=== PATIENT | female | born 1950 | race Caucasian/White ===

== ENCOUNTER → 2020-07-26 15:26 | Outpatient (CLI) | payer MEDICARE, OTHER, SELFPAY ==
[2020-07-26 16:33] LABS: COVID19 -Nasal RAPID Negative (Negative)
== END ==
PROVIDERS: PCP Internal Medicine; Visit Provider Nurse Practitioner
DX: Z11.59 Encounter for screening for other viral diseases (principal)
CPT/HCPCS: 87635

== ENCOUNTER 2020-07-28 10:22 | Day surgery (SDC) | payer MEDICARE, OTHER, SELFPAY ==
[2020-07-21 09:53] VITALS: BMI 39.8
[2020-07-28] VITALS (19 sets, daily range): BP systolic 90–145; BP diastolic 56–82; PULSE 54–106; RESP 9–18; TEMP 36.2–37.1; O2SAT 92–100; BMI 38.6
--- NOTE | 2020-07-28 | DI.RAD.S_ITS ---
PROCEDURE: XR LUMBAR SPINE 2-3V INDICATIONS: L5-S1 TLIF TECHNIQUE: 2 views of the lumbar spine were acquired. COMPARISON: [facility] Outside Film, CR, XR LUMBAR SPINE 2 OR 3 VIEWS, 03/22/2020, 8:49. FINDINGS: Bones: Postsurgical changes compatible with L5-S1 TLIF. Soft tissues: Overlying bowel gas pattern is normal. No suspicious soft tissue calcifications. IMPRESSION: Expected postsurgical change for L5-S1 TLIF. Dictated by: Bonnie Wyatt MD, PhD on 07/28/2020 at 15:44 Approved by: Bonnie Wyatt MD, PhD on 07/28/2020 at 15:45
[2020-07-28] MEDS: LACTATED RINGERS 1,000 ML 42 ML IV ×2 (10:54→14:27)
--- NOTE | 2020-07-28 12:16 | PM.PREOP ---
Pre-operative Note COVID-19 COVID-19 status: Negative Result date/Date tested (Pos, Neg/Pending): 07/26/20 Interval Note History & Physical reviewed/Exam performed by Physician: Yes Changes to H&P: No
[2020-07-28] MEDS: CEFAZOLIN 2 GM/100 ML FROZ.PIGGY IV ×2 (12:36→20:53)
--- NOTE | 2020-07-28 13:17 | SUR.OPER ---
Prone on spine table, head in foam head support, padded chest and pelvic supports, gel pad at knees, lower legs supported by pillows; nipples, genitalia and toes free of pressure, arms secured on foam padded arm boards at <90 degrees abduction. Tape over blanket at thigh secured to table.
[2020-07-28] MEDS: BUPIVACAINE LIPOSOME 266 MG/20 ML VIAL INJ (13:25)
[2020-07-28] MEDS: BUPIVACAINE 0.5% W/ EPI (PF) 30 ML VIAL INJ (13:26)
--- NOTE | 2020-07-28 15:30 | PM.OP.1 ---
Operative Date/Time/Diagnoses Date of procedure: 07/28/20 Time of procedure: 13:30 Pre-op diagnosis: 1. L5-S1 spondylolisthesis 2. L5-S1 spinal stenosis with radiculopathy Post-op diagnosis: same Procedure & Clinicians Procedure: 1. L5-S1 Postero-lateral and posterior interbody fusion 2. L5-S1 interbody cage placement. 3. L5-S1 decompressive laminectomy with bilateral facetecomies 4. L5-S1 Posterior non-segmental instrumentation 5. [place] of bone marrow from iliac crest 6. Utilization of microsurgical technique and operating microscope Same procedure as scheduled: Yes Indications: Patient has been having chronic back pain and worsening lumbar radiculopathy. Patient failed multiple conservative management with worsening pain weakness and numbness in her lower extremity. Patient has been having difficulty performing activity of daily living. After discussing risks benefits of treatment options, patient elected proceed with surgery. Surgeon: Jamari Mcclain Registered Physical Therapist: Pratibha Haider'Brien Click Yes if Unassisted: No Anesthesia Type: General Operative Notes Closure Type: primary Specimen(s): none sent Prosthetic devices, grafts, tissues, transplants, or devices: Globus revolve screws, Rise cage Estimated Blood Loss (mL): 100 Blood products transfused: none Procedure in detail: Patient was seen in the preoperative area. Risks and benefits of the surgery was discussed with the patient. Informed consent was obtained from the patient and placed in the chart. Surgical site was marked. Patient was taken to the operative room. General anesthesia was administered. Prophylactic antibiotic was given to the patient less than 30 min before the incision was made. Patient was placed into a prone position on the Nir table. Patient's back was then prepped and draped in the sterile fashion. Time-out was performed at this time. Using AP and lateral C-arm imaging the interval between L5-S1 was identified and marked on patient's back. A 2 inch incision 2 in from midline was made on the right side first. The fascia was incised in line with skin incision. Globus MARS retractors was placed inside the incision and docked onto the L5 lamina. Using microsurgical technique and operating microscope, a L5 laminectomy and L5-S1 facetectomy was performed using a Kerrison rongeur. Patient was found have severe neural foramen stenosis and moderate central stenosis which required a total facetectomy and bilateral laminectomy at L5-S1 level. After the laminectomy and facetectomy the epidural space and neural foramen was fully decompressed which rendered L5-S1 grossly unstable require fusion procedure. The disc space at L5-S1 was identified. And a total diskectomy was performed at L5-S1 level. The endplates were decorticated using a rasp and shaver. The total diskectomy and decortication was performed at L5-S1 level in order to to accomplish a L5-S1 fusion. The local bone from the laminectomy and facetectomy was saved for local bone grafting. After the total diskectomy and decortication was completed, Trifecta bone graft material was combined with local bone that was harvested earlier. At this time, a separate skin is incision was made over the iliac crest. A Jamshidi needle was inserted into the iliac crest through a separate skin incision. 5 cc of bone marrow aspiration was obtained through the separate skin incision using a Jamshidi needle from the iliac crest. The bone marrow aspiration was combined with local bone and the Trifecta bone grafting material. The bone grafting material was placed into the L5-S1 interbody space along with a expandable cage. The cage was expanded to its maximum height using the torque limiting screwdriver. At this time a mirror image incision was made on the left side. The fascia was incised in line with the skin incision. Globus MARS retractor was inserted and docked onto the L5-S1 posterolateral gutter. Using the power drill, posterior-lateral decortication was performed at L5-S1 level until bleeding cortical bone was identified. The remaining bone grafting material was placed into the L5-S1 posterior lateral gutter he order to accomplish posterolateral fusion at the L5-S1 level. Using the double C-arm technique, pedicle screws were placed into the L5-S1 pedicles bilaterally. This was done by placing the Jamshidi needle into the pedicles, then placing the guidewires over the Jamshidi needle, and finally placing the cannulated screws over the guidewires bilaterally. After the pedicle screws were placed, 2 titanium rods was locked into the heads of the pedicle screws using locking caps and torque limiting screwdriver. After all the hardware was placed, and confirmed with AP and lateral C-arm imaging, the wound was then irrigated with sterile normal saline and packed with Ray-Mike gauze for 3 min to accomplish hemostasis. After the gauze was removed the deep fascia was closed with #1 Vicryl suture. The subcutaneous layer was closed with 2-0 Vicryl. The skin was closed with skin ben. Patient tolerated the procedure well. There were no complications. Complications: none Post-operative Condition: stable Disposition: PACU Plan for aftercare: Admit to inpatient hospital
[2020-07-28] MEDS: fentaNYL 100 MCG/2 ML INJ IV ×2 (15:52→16:01)
[2020-07-28] MEDS: HYDROMORPHONE 2 MG INJ IV ×4 (15:54→16:18)
[2020-07-28] MEDS: hydrOXYzine 50 MG/ML INJ 25 MG IM (16:08)
--- NOTE | 2020-07-28 16:32 | SUR.PHASEI ---
Pt arrived with airway, needing chin support for patent airway, 02 nasal cannula added, o2 now weaned off.
--- NOTE | 2020-07-28 16:35 | SUR.PHASEI ---
Pt medicated with dilaudid vistaril and fentanyl. Pt states she is much more comfortable now. Report called.
--- NOTE | 2020-07-28 16:47 | SUR.PHASEI ---
Pt transported upm to room on room air.
[2020-07-28] MEDS: SODIUM CHLORIDE 0.9% 1,000 ML 100 ML IV (17:11)
--- NOTE | 2020-07-28 17:58 | PC.ADMIT ---
[address] Admission Note: The patient,Mariajose Cintron,69 y/o, was given written information regarding hospital policies, unit procedures and contact persons. Patient's smoking status: Never smoker. Vital Signs - 8 hr 07/28/20 10:57 07/28/20 15:30 07/28/20 15:35 Temperature 98.8 F 97.4 F L Pulse Rate 73 87 86 Respiratory Rate 16 10 L 9 L Blood Pressure 132/77 141/81 H 135/75 Pulse Oximetry 100 92 93 07/28/20 15:41 07/28/20 15:46 07/28/20 15:51 Temperature Pulse Rate 82 80 54 L Respiratory Rate 16 18 16 Blood Pressure 130/77 121/73 90/68 Pulse Oximetry 97 98 99 07/28/20 15:55 07/28/20 16:02 07/28/20 16:07 Temperature Pulse Rate 75 73 66 Respiratory Rate 11 L 14 18 Blood Pressure 134/82 121/77 122/61 Pulse Oximetry 100 100 100 07/28/20 16:14 07/28/20 16:24 07/28/20 16:35 Temperature Pulse Rate 71 76 75 Respiratory Rate 16 11 L 13 Blood Pressure 135/66 125/67 112/71 Pulse Oximetry 100 100 100 07/28/20 16:45 07/28/20 16:46 07/28/20 17:15 Temperature 97.5 F L 97.1 F L 97.3 F L Pulse Rate 74 73 77 Respiratory Rate 15 16 15 Blood Pressure 103/56 L 133/73 115/61 Pulse Oximetry 100 100 99 07/28/20 17:45 Temperature 97.7 F Pulse Rate 69 Respiratory Rate 16 Blood Pressure 145/77 H Pulse Oximetry 100 Patient arrived on floor at 1645 already in inpatient bed. Axox3, can make needs known. Recent hx of fall. C/o pain /10, managed on current regimen. Given fall risk and call light instructions, acknowledged teaching. High fall risk, call light in reach.
[2020-07-28] MEDS: hydrOXYzine pamoate 25 MG CAPSULE PO (19:47)
[2020-07-28] MEDS: OXYCODONE IR 5 MG TABLET 10 MG PO ×2 (19:47→22:48)
[2020-07-28] MEDS: SENNOSIDES 8.6 MG TABLET 17.2 MG PO (20:52)
[2020-07-28] MEDS: DOCUSATE 100 MG CAPSULE PO (20:52)
[2020-07-29] MEDS: OXYCODONE IR 5 MG TABLET 10 MG PO ×3 (03:43→14:09)
[2020-07-29] MEDS: CEFAZOLIN 2 GM/100 ML FROZ.PIGGY IV (04:02)
[2020-07-29 05:56] VITALS: BP 122/61; PULSE 79; RESP 16; TEMP 36.4; O2SAT 94
[2020-07-29 07:00] VITALS: BP 127/72; PULSE 86; RESP 16; TEMP 36.7; O2SAT 96
[2020-07-29] MEDS: ACETAMINOPHEN 325 MG TABLET 650 MG PO ×2 (08:47→12:36)
[2020-07-29] MEDS: DOCUSATE 100 MG CAPSULE PO (08:47)
[2020-07-29] MEDS: SODIUM CHLORIDE 0.9% FLUSH 10 ML IV (08:48)
--- NOTE | 2020-07-29 09:09 | P.PN_ITS ---
Subjective Subjective Date Patient Seen: 07/29/20 Time Patient Seen: 09:09 Interval history: Patient is POD#1 s/p L5-S1 TLIF with Dr. Mcclain. Pain has been controlled with Oxycodone. She has been out of bed to the bathroom. She is voiding appropriately and has tolerated a diet. No new numbness, tingling, or weakness. No chest pain or shortness of breath. Exam Vital Signs (past 8 hours): - 07/29/20 05:56 07/29/20 07:00 Temperature 97.6 F 98.1 F Pulse Rate 79 86 Respiratory Rate 16 16 Blood Pressure 122/61 127/72 Pulse Oximetry 94 96 Oxygen Delivery Method Room Air Oxygen Flow Rate 0 Narrative Exam Narrative: 69 year old female, moving about room and then resting in chair. Alert and oriented in no acute distress. Dressing in place is clean and dry peeling at edges. Patient walking about the room. 5/5 BLE. Calves are soft. Palpable pedal pulse. [facility] Medical History Arthritis Back pain Easy bruisability Neuropathy Seasonal allergies Spinal cord injury (03/2014) Surgical History History of section History of surgery Hx of dilation and curettage Hx of tonsillectomy Hx of tubal ligation Social History household members: children Smoking Status: Never smoker alcohol intake: former Assessment & Plan Assessment & Plan narrative: -Patient POD#1 s/p L5-S1 TLIF. Progressing well. -Will need to work with PT today. Limit bending, lifting, twisting. -Daughter is available as ecology professor at home. -Oxycodone working well for pain control, will provide prescription for this to discharge home with. -Potential discharge to home this afternoon, however she has not mobilized with PT as of yet and does have history of weakness/wheelchair use as well as obesity. Otherwise d/c to home tomorrow. Quality VTE Deep Vein Thrombosis/Pulmonary Embolism Present on Admission: No
[2020-07-29 11:00] VITALS: BP 112/78; PULSE 95; RESP 16; TEMP 36.3; O2SAT 100
--- NOTE | 2020-07-29 11:40 | PT.IIE ---
Current Diagnoses Spondylolisthesis, lumbosacral region (07/28/20) Spinal stenosis, lumbar region without neurogenic claudication (07/28/20) Postlaminectomy syndrome, not elsewhere classified (07/28/20) Surgery Performed Operation Date: 07/28/20 12:15 Actual Procedures p L5-S1 TLIF w. instrumentation(Not Applicable) - Jamari Mcclain MD Surgical History (Last Reviewed 07/29/20 @ 09:12 by Bettie Kemp PA-C) History of section History of surgery Hx of dilation and curettage Hx of tonsillectomy Hx of tubal ligation Medical History (Last Reviewed 07/29/20 @ 09:12 by Bettie Kemp PA-C) Arthritis Back pain Easy bruisability Neuropathy Seasonal allergies Spinal cord injury (03/2014) Physical Therapy Inpatient Evaluation/Re-Eval M1 PT/OT-IP Prior Functional Status Start: 07/29/20 08:42 Freq: NEEDED Status: Active Protocol: Document 07/29/20 11:37 DE (Rec: 07/29/20 12:13 DE [id number]) Medical Review Prior Functional Status Medical History Reviewed Yes Diet/Fluid Consistency Regular Communication WNL. No deficits noted. Able to make needs known. Mobility and Gait Modified IND with Veloped for outside and regular FWW for inside the house at baseline. Pt was able to amb ~2 miles. Activities of Daily Living and IADL's IND for all ADLs and IADLs at baseline. Social History Household Members children Living Arrangements House Number of Floors (Floors) Two Floors Number of Stairs To Enter/Railing? 0 JANNET through garage. 15 steps with narrow B railing but pt doesn't need to go upstairs. Home Environment Standard Height Toilet,Walk in Shower,Built-In Shower Seat Home Equipment Front Wheel Walker,Straight Cane,Crutches,Manual Wheelchair,Raised Toilet Seat Without Armrests,Marine Pipe Welder,Grab Bars In Shower Employment Status Retired Additional Social History Comment Daughter will be home with pt full-time for the next 3 months. Daughter is in [place]. M1 PT/OT-IP Prior Functional Status Start: 07/29/20 11:54 Freq: NEEDED Status: Active Protocol: Document 07/29/20 12:26 CCC (Rec: 07/29/20 13:00 [facility] [id number]) Medical Review Prior Functional Status Medical History Reviewed Yes Diet/Fluid Consistency Regular Communication WNL. No deficits noted. Able to make needs known. Mobility and Gait Modified IND with Veloped for outside and regular FWW for inside the house at baseline. Pt was able to amb ~2 miles. Activities of Daily Living and IADL's IND for all ADLs and IADLs at baseline. Social History Household Members children Living Arrangements House Number of Floors (Floors) Two Floors Number of Stairs To Enter/Railing? 0 JANNET through garage. 15 steps with narrow B railing but pt doesn't need to go upstairs. Home Environment Standard Height Toilet,Walk in Shower,Built-In Shower Seat Home Equipment Front Wheel Walker,Straight Cane,Crutches,Manual Wheelchair,Raised Toilet Seat Without Armrests,Marine Pipe Welder,Grab Bars In Shower Employment Status Retired Additional Social History Comment Daughter will be home with pt full-time for the next 3 weeks . Daughter is in [place]. M2 PT-IP Current Condition Start: 07/29/20 08:42 Freq: NEEDED Status: Active Protocol: Document 07/29/20 11:37 DE (Rec: 07/29/20 12:13 DE [id number]) Physical Therapy Current Condition Current Condition Evaluation Date 07/29/20 Treatment Diagnosis L5-S1 TLIF; Difficulty in walking Onset Date 07/28/20 Precautions Lumbar Precautions Log Roll,No Twisting,Limit Bending,Lifting Restriction of 10 lbs,Gait Belt above Incisional Area M3 PT-IP Subjective Start: 07/29/20 08:42 Freq: NEEDED Status: Active Protocol: Document 07/29/20 11:37 DE (Rec: 07/29/20 12:13 DE [id number]) Subjective Physical Therapy Visit Type Type Initial Evaluation Visit Start Time 09:30 Visit Stop Time 10:14 Total Visit Minutes 44 Notes DONELL Locke led session under direct supervision of PT Celine. Number of NAVIGATING OFFICER Visits 0 Physical Therapy Visit Comments Patient Comments Pt is agreeable to do PT. M4 PT-IP Mobility and Gait Start: 07/29/20 08:42 Freq: NEEDED Status: Active Protocol: Document 07/29/20 11:37 DE (Rec: 07/29/20 12:13 DE [id number]) PT-Bed Mobility Assessment Supine to Sit Supine to Sit Contact Guard Assistance Sit to Supine Sit to Supine Contact Guard Assistance Scooting Scooting to Edge of Bed Contact Guard Assistance PT-Transfer Assessment Sit to and From Stand Sit to and from Stand Contact Guard Assistance,Use of Upper Extremities Equipment Transfer Assistive Device Gait Belt,Front Wheeled Walker Orthotic/Prosthetic Devices or Brace: No Transfers Transfer Destination Bed,Chair Transfer Technique Amb with FWW Transfer Ability Level of Assist Contact Guard Assistance Comments Mobility Comments Pt was sitting in chair upon arrival. Pt completed sit to stand with R armrest, FWW, and CGA. Pt relied heavily on her BUE to stand up. Pt then amb ~80 ft in the hallway and back to the room with FWW CGA. Pt reported her legs were getting tired after amb ~40 ft and requested to head back to the room. Pt demonstrated step- through gait pattern with externally rotated BLE (R>L), decreased feet clearance, decreasd stride length. Cues were provided to roll the FWW instead of picking it up. Pt returned to the room and sat down on L EOB to assess bed mobility. Pt performed sit <> supine using logroll technique with CGA. Pt was also able to scoot side to side slightly in bed with CGA. Pt stood up and transfered to the chair that was on the L side with FWW CGA. Call light placed within reach. Gait Assessment Gait Gait Assistance Required: Contact Guard Assist Distance (Feet) 80 Able to Maintain Weight Bearing Status Yes During Gait Assistive Devices Assistive Device Gait Belt,Front Wheeled Walker Orthotic/Prosthetic Devices or Brace: No Gait Deviations General Gait Pattern Antalgic,Decreased Stride Length,Decreased Feet Clearance,Lateral Trunk Lean Factors Limiting Gait Function Factors Limiting Gait Function Decreased Activity Tolerance, Decreased Strength,Limited Range of Motion,Pain,Poor Balance Comments Gait Comments See mobility comments. Stair Climbing Assessment Comments Stair Climbing Comments Not assessed. PT-Balance Assessment Sitting Balance and Reactions Static Sitting Balance Ability Normal Dynamic Sitting Balance Ability Good Standing Balance and Reactions Static Standing Balance Ability Good Dynamic Standing Balance Ability Fair M5 PT-IP Objective Assessments Start: 07/29/20 08:42 Freq: NEEDED Status: Active Protocol: Document 07/29/20 11:37 DE (Rec: 07/29/20 12:13 DE [id number]) Orientation Orientation/Cognition Level of Alertness Alert Orientation Name,Age,Birthday,Month,Date, Year,Day of Week,Place, Situation Language Function Ability No Deficits Noted Safety Awareness Understands Safety Issues Memory Description No Deficits Noted Gross Range of Motion Lower Extremity ROM Assessment Within Functional Limits Strength Lower Extremity Strength Assessment Bilaterally Impaired Hip 4-/5 Knee 4/5 Ankle 5/5 Coordination Assessment Gross Coordination Gross Coordination WNL Sensation Assessment Sensation Gross Sensation WNL Light Touch Intact Muscle Tone Muscle Tone WNL Yes M6 PT-IP Treatment Start: 07/29/20 08:42 Freq: NEEDED Status: Active Protocol: Document 07/29/20 11:37 DE (Rec: 07/29/20 12:13 DE [id number]) Physical Therapy Treatment Exercises Exercises Ankle Pumps Education Education Provided Precautions,Post-Op Packet, Safety Other Treatments Other Treatment Performed Provided education on precautions, safety, and role of PT. M7 PT-IP Assessment and Plan Start: 07/29/20 08:42 Freq: NEEDED Status: Active Protocol: Document 07/29/20 11:37 DE (Rec: 07/29/20 12:13 DE [id number]) PT Summary Assessment and Plan Potential Rehabilitation Potential Good Status of Condition at Evaluation Evolving Summary Impairments Pain,ROM,Strength,Balance,Bed Mobility,Transfers,Gait, Activity Tolerance Assessment Summary Mariajose is a 69 yo female POD1 s/p L5-S1. At baseline, pt is modified IND with Veloped for outdoor amb and regular FWW for home amb at baseline. Pt was able to amb ~ 2 miles. Pt is IND for all A/ IDLs at baseline. On evaluation, pt requires CGA for supine <> sit, sit <> stand, and amb with use of FWW . Pt c/o fatigue after amb ~40 ft. PT anticipates pt will be safe to d/c home once medically cleared. CG training with daughter is planned for the PM visit. Goals Bed Mobility Goal Standby Assistance Transfer Goal Standby Assistance,Front Wheeled Walker Gait Goal Standby Assistance,Front Wheel Walker Gait Distance 200 Days to Meet Goals 3 Frequency of Treatment Frequency Of Treatment Twice a Day Treatment Plan Physical Therapy Treatment Plan Bed Mobility Training,Transfer Training,Gait Training, Therapeutic Exercise,Balance Retraining,Post Op Education, Discharge Planning,Hot or Cold Pack,Neuromuscular Re-ed Other Recommendations and Next Treatment CG training with daughter on Focus car transfer. Recommendations To Nursing Amount of Assist Needed 1 Person Assist Discharge Recommendations PT Discharge Recommendations Home with Assistance Transportation Needs at Discharge Private Vehicle Treatment was provided by Chucky Jolley, DONELL and supervised by Celine Parsons, PT. I personally reviewed this note and agree with its contents.
--- NOTE | 2020-07-29 11:43 | OT.IP.EVAL ---
Current Diagnoses Spondylolisthesis, lumbosacral region (07/28/20) Spinal stenosis, lumbar region without neurogenic claudication (07/28/20) Postlaminectomy syndrome, not elsewhere classified (07/28/20) Surgery Performed Operation Date: 07/28/20 12:15 Actual Procedures p L5-S1 TLIF w. instrumentation(Not Applicable) - Jamari Mcclain MD Past Medical History (Last Reviewed 07/29/20 @ 09:12 by Bettie Kemp PA-C) Arthritis Back pain Easy bruisability Neuropathy Seasonal allergies Spinal cord injury (03/2014) Surgical History (Last Reviewed 07/29/20 @ 09:12 by Bettie Kemp PA-C) History of section History of surgery Hx of dilation and curettage Hx of tonsillectomy Hx of tubal ligation Occupational Therapy Inpatient Evaluation/Re-Eval M1 PT/OT-IP Prior Functional Status Start: 07/29/20 11:54 Freq: NEEDED Status: Active Protocol: Document 07/29/20 12:26 [facility] (Rec: 07/29/20 13:00 [facility] [id number]) Medical Review Prior Functional Status Medical History Reviewed Yes Diet/Fluid Consistency Regular Communication WNL. No deficits noted. Able to make needs known. Mobility and Gait Modified IND with Veloped for outside and regular FWW for inside the house at baseline. Pt was able to amb ~2 miles. Activities of Daily Living and IADL's IND for all ADLs and IADLs at baseline. Social History Household Members children Living Arrangements House Number of Floors (Floors) Two Floors Number of Stairs To Enter/Railing? 0 JANNET through garage. 15 steps with narrow B railing but pt doesn't need to go upstairs. Home Environment Standard Height Toilet,Walk in Shower,Built-In Shower Seat Home Equipment Front Wheel Walker,Straight Cane,Crutches,Manual Wheelchair,Raised Toilet Seat Without Armrests,Atm Mechanic,Grab Bars In Shower Employment Status Retired Additional Social History Comment Daughter will be home with pt full-time for the next 3 weeks . Daughter is in [place]. M2 OT-IP Current Condition Start: 07/29/20 11:54 Freq: Status: Active Protocol: Document 07/29/20 12:26 [facility] (Rec: 07/29/20 13:00 [facility] [id number]) Occupational Therapy Current Condition Current Condition Evaluation Date 07/29/20 Treatment Diagnosis s/p L5-S1 TLIF Diagnosis Onset Date 07/28/20 M3 OT- IP Subjective and Pain Start: 07/29/20 11:54 Freq: Status: Active Protocol: Document 07/29/20 12:26 [facility] (Rec: 07/29/20 13:00 [facility] [id number]) OT- Subjective Occupational Therapy Visit Type Type Initial Evaluation Visit Start Time 10:55 Visit Stop Time 11:43 Total Visit Minutes 48 Occupational Therapy Visit Comments Patient Comments Pt just finished showering and agreed to OT eval. Patient/Caregiver Goals TO go home. OT Pain Assessment Pain When Pain Assessed At Rest Pain Present Pain Present Denied Pain M4 OT- IP ADL's Start: 07/29/20 11:54 Freq: Status: Active Protocol: Document 07/29/20 12:26 [facility] (Rec: 07/29/20 13:00 [facility] [id number]) OT [id number] Comments OT Self-Feeding Comments NOt at meal time. OT ADL-Grooming General Evaluation Grooming Ability Standby Assistance Comments OT Grooming Comments SBA with FWW. OT ADL-Oral Care Comments Oral Care Comments NOt performed. OT ADL-Dressing General Eval Upper Body Dressing Ability Standby Assistance Lower Body Dressing Ability Minimal Assistance Areas Needing Assistance Underpants/Brief,Pants/Shorts Assistive Devices Dressing Assistive Devices Long Handled Shoe Horn,Atm Mechanic Comments OT Dressing Comments Pt educated to use parts facilitator to assist to help with dressing needs of pants and underwear. Pt able to comfortable cross her legs by pulling on her pants to help able to tobias her socks and shoes. OT ADL-Toileting General Evaluation Toileting Ability Standby Assistance,Moderate Assistance Areas Needing Assistance Perform Perineal Hygiene Comments OT Toileting Comments Pt able to wipe from the front after urination with good follow through of back precautions. Pt states only able to wipe from the front to get to her anal area, educated pt on information of toilet paper aid. Otherwise pt's daughter aware that pt will need assist for completeness. Pt also plans on wearing pads daily. OT ADL-Bathing Comments OT Bathing Comments Pt just showered with nursing aid. Spoke of use of FWW to back up to the shower stall and then step into the shower as there in a right hand rail and also daughter can assist pt. M5 OT- IP IADL's Start: 07/29/20 11:54 Freq: Status: Active Protocol: Document 07/29/20 12:26 [facility] (Rec: 07/29/20 13:00 [facility] [id number]) OT-Instrumental Activities of Daily Living Home Safety Awareness Awareness of Need for Assistance at Home Good Awareness Home Safety Comments Pt's daughter to be home to assist pt for all her needs. Medication Management Medication Management Caregiver Administers Money Management Money Management Caregiver Provides Assistance Meal Preparation Meal Preparation Caregiver Provides Assist Mold Dresser Mold Dresser Caregiver Provides Assist M6 OT- IP Functional Cognition Start: 07/29/20 11:54 Freq: Status: Active Protocol: Document 07/29/20 12: [facility] (Rec: 07/29/20 13:00 [facility] [id number]) Cognitive Factors Limiting Selfcare Function Cognitive Ability Level of Alertness Alert Patient Orientation Name,Place,Situation Attention Span Ability Capable of Focused Attention, Capable of Sustained Attention Ability to Follow Commands Able to Follow One Step Commands Safety Awareness Decreased Recall of Precautions,Decreased Ability to Apply Precautions Problem Solving Ability Needs Assist to Identify Solutions Cognitive Comments Cognitive Assessment Comments Pt needing reminders for safety awareness with FWW, vc to help incorporate back precautions for ADL and mobility needs. OT- Vision and Hearing OT- Hearing Assessment OT- Hearing Assessment WFL M7 OT- IP Mobility and Balance Start: 07/29/20 11:54 Freq: Status: Active Protocol: Document 07/29/20 12:26 [facility] (Rec: 07/29/20 13:00 [facility] [id number]) OT-Transfer Assessment Sit to and From Stand Sit to and from Stand Standby Assistance Transfers Transfer Ability Standby Assistance Technique Transfer Destination Chair,Toilet Transfer Technique Stand Step Pivot Devices Transfer Assistive Devices Gait Belt,Front Wheeled Walker Comments Mobility Comments SBA to stand from the recliner to FWW and able to walk to and from the bathroom. OT- Gait Assessment Comments Gait Ability Comments SBA with FWW. OT- Balance Assessment Sitting Balance and Reactions Static Sitting Balance Ability Normal Dynamic Sitting Balance Ability Good Standing Balance and Reactions Static Standing Balance Ability Fair M8 OT- IP Objective Assessments Start: 07/29/20 11:54 Freq: Status: Active Protocol: Document 07/29/20 12:26 [facility] (Rec: 07/29/20 13:00 [facility] [id number]) OT Gross Range of Motion Upper Extremity Range of Motion Assessment Within Functional Limits OT-Muscle Tone Assessment Muscle Tone WNL Yes M9 OT- IP Assessment and Plan Start: 07/29/20 11:54 Freq: Status: Active Protocol: Document 07/29/20 12:26 [facility] (Rec: 07/29/20 13:00 [facility] [id number]) OT Summary Assessment and Plan Potential Rehabilitation Potential Good Analytic Complexity at Evaluation Low Summary OT Impairments Balance,Functional Cognition, Functional Mobility,Dressing, Toileting,Bathing,Toilet Transfers,Shower Transfers, Activity Tolerance Progress Towards Goals Progressing Toward Goals Assessment Summary Pt low complexity and main barrier are decreased safety awareness and needing reminders to incorporate her back precautions. Pt has a supportive daughter that will stay with her for 3 weeks to assist with her needs. Pt would benefit from a toilet paper aid to assist with her hygiene needs. Pt looking to go home with assist from her daughter. Goals Grooming Goal Independent Dressing Goal Independent Toileting Goal Independent Bathing Goal Standby Assistance Toilet Transfer Goal Independent Shower Transfer Goal Independent Patient/Caregiver Education Goal Demonstrate Post-Op Precautions,Caregiver Independent Assisting Patient Days to Meet Goals 1 Frequency of Treatment Frequency Of Treatment Once a Day Treatment Plan OT Treatment Plan ADL Training,Functional Cognition Training,Functional Mobility,Patient/Family Education,Discharge Planning Discharge Recommendations OT Discharge Recommendations Home with Assistance Home Equipment Needs Toilet paper aid Transportation Needs at Discharge Private Vehicle
--- NOTE | 2020-07-29 11:49 | CM.DANOTE ---
Addendum entered by Sherita Khan LPN 07/29/20 12:00: Met now with pt and her daughter Norma, introduced self and role. Pt is found up in chair and eating lunch. Says she is feeling good and thinks she may be able to go home later today. She says that OT and PT have worked with her now and PT will see her later this afternoon. (their notes are not currently available for review.) Pt confirms that she lives with Norma in [place] and that Norma will be available for prn support as she recovers. Her FWW is already in the room. Ortho PA Bettie stated in her note that pt MAY be ok to d/c later today, pending outcome of therapy. At this time pt is hopeful that she will be able to do this. Original Note: Discharge Planning/Care Management DCP: assessment: Case received, EMR reviewed. Pt is a 69 year old female who admitted yesterday for a scheduled spinal/lumbar surgery and in setting of obesity. Payer: Medicare and [employer] Surgeon: Dr. Mcclain PCP: Rosa Cheng. PT and OT were to see pt this morning for the first time. Will check in and follow to complete the assessment process and look a d/c issues and options. Advanced directive, confirm from FAMILY Start: 07/28/20 17:02 Freq: Q24H Status: Active Protocol: Document 07/28/20 17:02 RL (Rec: 07/28/20 17:02 RL [id number]) Advance Directive, confirm on record Time 17:02 Person contacted Mariajose Cintron Copy received No CM Discharge Assessment Start: 07/29/20 11:48 Freq: Status: Active Protocol: Document 07/29/20 11:49 ITV (Rec: 07/29/20 11:49 ITV [id number]) Discharge Planning Assessment Advance Directives? Yes Advance Directives on File No History Provided By Patient Prior Living Arrangements House Household Members children Is patient alert and oriented? Yes Review Status In Process Pre-Anesthesia Assessment Start: 07/21/20 09:52 Freq: Status: Active Protocol: Document 07/21/20 09:53 CAB (Rec: 07/21/20 10:39 CAB [id number]) Pre-Anesthesia Assessment Patient Information Reviewed Via Phone Assessment Assessment Completed With Patient Comment Labs/EKG done @ [facility] 07/08, not available, COVID screen @ 07/26/20 Primary Care Provider Rosa Cheng Seen Specialist in Last 12 Months Yes Specialist Seen Regulatory Affairs Manager,Orthopedist Primary Language Latvian Customer Assistant Required No Height 160.02 cm Weight 102.058 kg Body Mass Index (BMI) 39.8 Hearing Ability Normal Visual Impairment No Limitations Visual Assist None Dentition Type Teeth, Natural Present,Teeth, Missing Barriers to Learning None Hx Anesthesia Reactions No Hx Family Anesthesia Reaction No Hx Malignant Hyperthermia No Hx Blood Transfusions No Anesthesia Review Requested No alcohol intake former Smoking Status Never smoker Substance Use Type does not use Pain Present Pain Reported Musculoskeletal Symptoms Abnormal Gait,Back Pain, Difficulty Walking,Muscle Cramps,Muscle Spasms,Numbness, Radiating Pain into Limb, Tingling History of Falling (Recent or History of No ) Patient is completely paralyzed or No completely immobile Prosthesis or Orthotic Device Front Wheel Walker Mental Status Oriented to own ability Is patient on oxygen? No Does patient have BLACKMON/SOB No Hx Sleep Apnea No Currently Taking a Beta Demetria No Can You Climb a Flight of Stairs Without Yes SOB Hx Chest Pain No Hx SOB No Hx Syncope or Dizziness Yes: Dizziness A little, related to my balance issues Anti-Coagulant Therapy No Has a Senior Insight Manager No Cardiac Testing No Hx Pacemaker/ICD No Pacemaker Rep Required? No Cardiac Clearance Received Not Applicable Comment Rides exercise bicycle 2x/week , denies sob, difficulty Diet Type At Home Regular dysphagia No Gastrointestinal Symptoms Constipation Bladder Pattern Frequency,Incontinent, Stress, Urgency Urinary Catheter Present No Hx Urinary Self Catheterization No Diabetes No Patient No Lactating No Hx Drug Resistant Organism No Presence of External or Internal Medical No Devices Have you had any close contact with No someone diagnosed with COVID-19? Marital Status Single Lives With children Prior Living Arrangements House Number of Floors (Floors) Two Floors Support System Child/Children Does the Patient Have Assistance After Yes: Pt lives w/daughter who Surgery will assist w/care at [place] Patient Discharge Plan Description Return Home Comment Pt advised 2 day length of stay per surgeon Feels Safe in Current Environment Yes Been Physically Hurt or Threatened By a No Person in Current Environment Do you have thoughts of harming yourself Vague or others? Are you currently considering suicide? No Do you have a plan to hurt yourself or No Plan others? If Yes, Provider Notified No Do You Have Any Spiritual Beliefs That No May Affect Your HC Choices? Do You Have Any Cultural Practices That No May Affect Your HC Choices? Comment Brandon Who Can We Speak to About Patient's Care Family, friends Identifying Code for Release of Patient Declines to issue Information Health Care Proxy/Next of Kin Norma (daughter) Health Care Proxy Emergency Contact Name Norma (daughter) Emergency Contact Advance Directives? Yes: Does not have current copy available Advance Directives on File No Power of Airline Counter Agent No PAC Instructions Durable medical equipment, Medications to take/avoid, Nasal antibiotic,No ETOH/ petroleum product on skin DOS, NPO,Post-op transportation,Pre -surgical wash,Sturdy shoes/ comfortable clothes,Do not bring valuables and remove jewelry
--- NOTE | 2020-07-29 14:04 | PT.IPTN ---
Current Diagnoses Spondylolisthesis, lumbosacral region (07/28/20) Spinal stenosis, lumbar region without neurogenic claudication (07/28/20) Postlaminectomy syndrome, not elsewhere classified (07/28/20) Surgery Performed Operation Date: 07/28/20 12:15 Actual Procedures p L5-S1 TLIF w. instrumentation(Not Applicable) - Jamari Mcclain MD Physical Therapy Treatment Note M2 PT-IP Current Condition Start: 07/29/20 08:42 Freq: NEEDED Status: Discharge Protocol: Document 07/29/20 11:37 DE (Rec: 07/29/20 12:13 DE [id number]) Physical Therapy Current Condition Current Condition Evaluation Date 07/29/20 Treatment Diagnosis L5-S1 TLIF; Difficulty in walking Onset Date 07/28/20 Precautions Lumbar Precautions Log Roll,No Twisting,Limit Bending,Lifting Restriction of 10 lbs,Gait Belt above Incisional Area M3 PT-IP Subjective Start: 07/29/20 08:42 Freq: NEEDED Status: Discharge Protocol: Document 07/29/20 13:40 [facility] (Rec: 07/29/20 15:23 [facility] [id number]) Subjective Physical Therapy Visit Type Type Treatment Note Visit Start Time 13:40 Visit Stop Time 14:04 Total Visit Minutes 24 Notes Daughter present throughout tx . Number of LASTEX OPERATOR Visits 1 Physical Therapy Visit Comments Patient Comments Pt is agreeable to do PT. Therapy Pain Assessment Pain When Pain Assessed During Mobility Pain Present Pain Present Pain Reported Location back Intensity 6 Scale Used Numeric (0 - 10) Description Tightness Pain Management Techniques Modification of Treatment, Timing of Activity with Medications M4 PT-IP Mobility and Gait Start: 07/29/20 08:42 Freq: NEEDED Status: Discharge Protocol: Document 07/29/20 13:40 [facility] (Rec: 07/29/20 15:23 [facility] [id number]) PT-Transfer Assessment Sit to and From Stand Sit to and from Stand Contact Guard Assistance,Use of Upper Extremities Equipment Transfer Assistive Device Gait Belt,Front Wheeled Walker Transfers Transfer Destination Chair,Toilet Transfer Technique Amb with FWW Transfer Ability Level of Assist Standby Assistance,Contact Guard Assistance,1 Person Assistance,Use of Upper Extremities Comments Mobility Comments Pt sitting in chair upon arrival, daughter present throughout tx. Pt stood CGA and ambulated to the BR. Pt able to sit SBA with use of wall rail, perform all pericare then stood SBA with use of wall rail. Pt ambulate to sink and washed hands with elbows on the counter for support. Pt then ambulated in [place] ~150ft w/FWW/SBA with small step through gait pattern and decreased foot clearance. Pt uses UE's to prevent full WB through LE's. Pt returned to room sitting in chair SBA. Pt recalls 3/3 back precautions and cues for getting in and out of her car were given to pt and daughter. Pt refused bed mobility training as daughter had been a DOOR CLAMPER and can assist pt with bed mobility. Gait Assessment Gait Gait Assistance Required: Standby Assistance Distance (Feet) 150 Able to Maintain Weight Bearing Status Yes During Gait Assistive Devices Assistive Device Gait Belt,Front Wheeled Walker Orthotic/Prosthetic Devices or Brace: No Gait Deviations General Gait Pattern Antalgic,Decreased Stride Length,Decreased Feet Clearance,Lateral Trunk Lean Factors Limiting Gait Function Factors Limiting Gait Function Decreased Activity Tolerance, Decreased Strength,Limited Range of Motion,Pain,Poor Balance Comments Gait Comments See mobility comments. Stair Climbing Assessment Comments Stair Climbing Comments Not assessed. No stairs to get into her apartment and 16 stairs to get into her daughters apartment but will not need to go up stairs. PT-Balance Assessment Sitting Balance and Reactions Static Sitting Balance Ability Normal Dynamic Sitting Balance Ability Good Standing Balance and Reactions Static Standing Balance Ability Good Dynamic Standing Balance Ability Fair M5 PT-IP Objective Assessments Start: 07/29/20 08:42 Freq: NEEDED Status: Discharge Protocol: Document 07/29/20 11:37 DE (Rec: 07/29/20 12:13 DE [id number]) Orientation Orientation/Cognition Level of Alertness Alert Orientation Name,Age,Birthday,Month,Date, Year,Day of Week,Place, Situation Language Function Ability No Deficits Noted Safety Awareness Understands Safety Issues Memory Description No Deficits Noted Gross Range of Motion Lower Extremity ROM Assessment Within Functional Limits Strength Lower Extremity Strength Assessment Bilaterally Impaired Hip 4-/5 Knee 4/5 Ankle 5/5 Coordination Assessment Gross Coordination Gross Coordination WNL Sensation Assessment Sensation Gross Sensation WNL Light Touch Intact Muscle Tone Muscle Tone WNL Yes M6 PT-IP Treatment Start: 07/29/20 08:42 Freq: NEEDED Status: Discharge Protocol: Document 07/29/20 11:37 DE (Rec: 07/29/20 12:13 DE [id number]) Physical Therapy Treatment Exercises Exercises Ankle Pumps Education Education Provided Precautions,Post-Op Packet, Safety Other Treatments Other Treatment Performed Provided education on precautions, safety, and role of PT. M7 PT-IP Assessment and Plan Start: 07/29/20 08:42 Freq: NEEDED Status: Discharge Protocol: Document 07/29/20 13:40 [facility] (Rec: 07/29/20 15:23 CL[facility] [id number]) PT Summary Assessment and Plan Potential Rehabilitation Potential Good Status of Condition at Evaluation Evolving Summary Impairments Pain,ROM,Strength,Balance,Bed Mobility,Transfers,Gait, Activity Tolerance Assessment Summary Pt requires CGA for sit-stand from chair and SBA from toilet with use of wall rail. Pt able to ambulate ~150ft with heavy UE use to off weight LE due to pain. Pt recalls 3/3 back precautions and was educated on car transfers. Pt daughter is able to assist pt and will be home to assist for three weeks. Goals Bed Mobility Goal Standby Assistance Transfer Goal Standby Assistance,Front Wheeled Walker Gait Goal Standby Assistance,Front Wheel Walker Gait Distance 200 Days to Meet Goals 3 Frequency of Treatment Frequency Of Treatment Twice a Day Treatment Plan Physical Therapy Treatment Plan Bed Mobility Training,Transfer Training,Gait Training, Therapeutic Exercise,Balance Retraining,Post Op Education, Discharge Planning,Hot or Cold Pack,Neuromuscular Re-ed Recommendations To Nursing Amount of Assist Needed 1 Person Assist Discharge Recommendations PT Discharge Recommendations Home with Assistance Transportation Needs at Discharge Private Vehicle
== END 2020-07-29 14:33 | disposition home or self-care (01) ==
LOC: AC 07-29 14:16 → OR 07-29 17:12
PROVIDERS: PCP Internal Medicine; Referring Provider Internal Medicine; Visit Provider Orthopaedic Surgery Orthopaedic Surgery of the Spine
PROC: (CPT 22633; principal; 2020-07-28 12:15)
DX: M43.17 Spondylolisthesis, lumbosacral region (principal); M48.061 Spinal stenosis, lumbar region without neurogenic claudication; M54.17 Radiculopathy, lumbosacral region; M96.1 Postlaminectomy syndrome, not elsewhere classified; E66.9 Obesity, unspecified; Z68.39 Body mass index [BMI] 39.0-39.9, adult; Z11.59 Encounter for screening for other viral diseases
CPT/HCPCS: 22633; 20939; 22853; 22840; 63047; 72100; 76000; 82962; 87635; 97116; 97161; 97165; 97530; 97535; C1776; C9290; J0690; J1100; J1170; J2405; J2704; J3010; J3410

== ENCOUNTER → 2023-09-09 12:49 | Outpatient (CLI) | payer MEDICARE, OTHER, SELFPAY ==
[2020-07-28 16:57] VITALS: BMI 38.6
--- NOTE | 2023-09-09 12:53 | DI.MRI.S_ITS ---
PROCEDURE: MR LUMBAR SPINE WO CON INDICATIONS: Spinal stenosis, lumbar region TECHNIQUE: Noncontrast sagittal T1 spin echo and T2 fast echo, sagittal STIR, and T2 fast spin echo through the lumbar spine. In cases with scoliosis, additional coronal T2 fast spin echo may be performed. COMPARISON: None. FINDINGS: Image quality: Excellent. Alignment and Curvature: There is normal bony alignment. Patient is status post posterior fixation and discectomy at L5-S1. Bone Marrow: Marrow is of normal overall signal. No acute vertebral body compression fractures. Spinal Cord: Conus medullaris terminates at the L1 level. Visualized cord demonstrates normal signal and size. Paraspinous Soft Tissues: No paravertebral masses. T12-L1: Normal appearance. L1-L2: Mild disc desiccation and height loss. No canal stenosis. No foraminal stenosis. L2-L3: Severe disc desiccation and height loss. Vacuum disc phenomenon. Moderate facet ligamentum flavum hypertrophy. Moderate canal stenosis. Mild bilateral foraminal stenosis. L3-L4: Severe disc desiccation and height loss. Vacuum disc phenomenon. Broad-based disc bulge. Severe facet ligamentum flavum hypertrophy. Mild canal stenosis. Moderate bilateral foraminal stenosis. L4-L5: Moderate disc desiccation and height loss. Vacuum disc phenomenon. Epidural lipomatosis. Broad-based disc protrusion which extends both laterally to the right and the left. Severe facet and ligamentum flavum hypertrophy. Epidural lipomatosis. Severe canal stenosis. The canal measures 3 mm at the narrowest AP diameter. Severe right and moderate left neural foraminal narrowing. Of note, the broad-based disc bulge abuts the bilateral exiting nerve roots at this level. L5-S1: Status post discectomy. Severe facet ligamentum flavum hypertrophy. Narrowing of the right lateral recess secondary to facet hypertrophy. Mild epidural lipomatosis. Mild canal stenosis. Severe right foraminal narrowing. No left neural foraminal stenosis. IMPRESSION: 1. Multilevel severe disc desiccation and height loss and vacuum disc phenomenon from L2-L5. 2. Broad-based disc bulges and facet and ligamentum flavum hypertrophy with resultant moderate canal stenosis at L2-3, mild canal stenosis at L3-4 and L5-S1, and severe canal stenosis at L4-5. The AP diameter of the canal at L4-5 measures 3 mm at the narrowest point. 3. Moderate bilateral foraminal stenosis at L3-4. Severe right foraminal stenosis at L4-5 and L5-S1. Moderate left foraminal stenosis at L4-5. Dictated by: Fawn Freeman M.D. on 09/09/2023 at 16:52 Approved by: Fawn Freeman M.D. on 09/09/2023 at 16:59
== END ==
LOC: MRI 12:51
PROVIDERS: PCP Internal Medicine; Referring Provider Orthopaedic Surgery Orthopaedic Surgery of the Spine; Visit Provider Orthopaedic Surgery Orthopaedic Surgery of the Spine
DX: M48.061 Spinal stenosis, lumbar region without neurogenic claudication (principal); M51.36 Other intervertebral disc degeneration, lumbar region; M47.816 Spondylosis without myelopathy or radiculopathy, lumbar region; M47.817 Spondylosis without myelopathy or radiculopathy, lumbosacral region; M48.07 Spinal stenosis, lumbosacral region
CPT/HCPCS: 72148

== ENCOUNTER → 2023-11-28 | Outpatient (CLI) | payer MEDICARE, OTHER, SELFPAY ==
[2020-07-28 16:57] VITALS: BMI 38.6
--- NOTE | 2023-11-28 10:04 | DI.CT.S_ITS ---
PROCEDURE: CT LUMBAR SPINE WO CON INDICATIONS: Spinal stenosis, lumbar region TECHNIQUE: Noncontrast 3 mm thick sections acquired from the T12 level to the sacrum. Sagittal and coronal reformats were constructed. For radiation dose reduction, the following was used: automated exposure control. COMPARISON: [facility], MR, MR LUMBAR SPINE WO CON, 09/09/2023, 13:52. FINDINGS: Image quality: Excellent. Bones: Posterior fusion instrumentation with interbody spacer and posterior decompression at L5 S1. No hardware complication. Mild levoscoliosis of the lumbar spine, centered at L4-5. There is moderate superior endplate fragility fracture of the left aspect of L3 vertebral body. Mild inferior endplate fracture of L4. Mild superior endplate fracture of L5. T12-L1: Unremarkable L1-L2: Unremarkable L2-L3: Mild disc bulge. No central canal stenosis. Mild left neural foraminal stenosis. No right neural foraminal stenosis. L3-L4: disc bulge. No central canal stenosis. Mild left neural foraminal stenosis. No right neural foraminal stenosis. L4-L5: disc bulge. Mild osseous central canal stenosis. Severe right neural foraminal stenosis. Moderate left neural foraminal stenosis. L5-S1: limited evaluation given associated artifact. Soft tissues: Visualized abdominal aorta is unremarkable. IMPRESSION: 1. Posterior fusion instrumentation with interbody spacer and posterior decompression at L5-S1. 2. Multilevel endplate fracture involving L3, L4, and L5, unchanged from prior MRI 3. Multilevel degenerate changes of the lumbar spine, most pronounced at L4-5, where there is mild osseous central canal stenosis, and severe right and moderate left neural foraminal stenosis. Dictated by: Lindsay Whalen M.D. on 11/28/2023 at 14:29 Approved by: Lindsay Whalen M.D. on 11/28/2023 at 14:41
[2023-11-28 11:30] LABS: Add Manual Diff / Slide Review NO; BUN Creatinine Ratio 19.4 (6-22); Basophils Absolute Auto 0 /uL (0-100); Basophils Percent Auto 0.4 % (0-2); Blood Urea Nitrogen 14 mg/dL (7-17); Calcium 9.3 mg/dL (8.4-10.2); Carbon Dioxide 26 mmol/L (22-32); Chloride 110 mmol/L (98-107); Eosinophils Absolute Auto 300 /uL (0-450); Estimated Glomerular Filt Rate > 60 mL/min (>60); Glucose 102 mg/dL (80-110); HEMOLYSIS < 15 (0-50); Hematocrit 43.2 % (36-46); Hemoglobin 14.6 g/dL (12.0-16.0); Lymphocytes Absolute Auto 2300 /uL (1100-4500); Lymphocytes Percent Auto 31.5 % (25-40); Mean Corpuscular HGB Conc 33.8 % (30-36); Mean Corpuscular Hemoglobin 31.1 PG (26-34); Mean Corpuscular Volume 91.9 fL (80-100); Monocytes Absolute Auto 500 /uL (0-900); Monocytes Percent Auto 6.6 % (3-14); Neutrophils Absolute Auto 4100 /uL (1500-7000); Neutrophils Percent Auto 57.5 % (50-75); Platelet Count 250 X10^3/uL (150-400); Sodium 140 mmol/L (137-145); White Blood Cell Count 7.2 X10^3/uL (4.5-11.0)
== END ==
PROVIDERS: PCP Internal Medicine; Referring Provider Orthopaedic Surgery Orthopaedic Surgery of the Spine; Visit Provider Orthopaedic Surgery Orthopaedic Surgery of the Spine
DX: Z01.818 Encounter for other preprocedural examination (principal); Z01.812 Encounter for preprocedural laboratory examination; M48.062 Spinal stenosis, lumbar region with neurogenic claudication; M47.816 Spondylosis without myelopathy or radiculopathy, lumbar region; M48.56XA Collapsed vertebra, not elsewhere classified, lumbar region, initial encounter for fracture; Z98.1 Arthrodesis status
CPT/HCPCS: 36415; 72131; 80048; 85025; 93005

== ENCOUNTER 2023-12-14 08:40 | Inpatient (IN) | payer MEDICARE, OTHER, SELFPAY ==
[2020-07-28 16:57] VITALS: BMI 38.6
[2023-12-08 09:52] VITALS: BMI 43.9
[2023-12-14] VITALS (12 sets, daily range): BP systolic 95–146; BP diastolic 60–113; PULSE 61–101; RESP 12–18; TEMP 35.9–37.1; O2SAT 92–100; BMI 45.3
--- NOTE | 2023-12-14 | DI.RAD.S_ITS ---
PROCEDURE: XR LUMBAR SPINE 2-3V INDICATIONS: TLIF L4-S1 TECHNIQUE: Fluoroscopic guidance utilized for a TLIF of L4 through S1. COMPARISON: None. FINDINGS: Fluoroscopic images submitted for a surgical fusion of L4 through S1. Please see operative note for further discussion. IMPRESSION: Fluoroscopic guidance. Dictated by: Zaire Galvez M.D. on 12/14/2023 at 16:39 Approved by: Zaire Galvez M.D. on 12/14/2023 at 16:40
[2023-12-14] MEDS: LACTATED RINGERS 1,000 ML 42 ML IV ×2 (09:25→12:36)
[2023-12-14] MEDS: ACETAMINOPHEN 325 MG TABLET 975 MG PO (09:29)
--- NOTE | 2023-12-14 09:45 | PM.PREOP ---
Pre-operative Note Interval Note History & Physical reviewed/Exam performed by Physician: Yes Changes to H&P: No
[2023-12-14] MEDS: CEFAZOLIN 2 GM/100 ML PREMIX 100 ML IV ×2 (10:30→18:58)
[2023-12-14] MEDS: BUPIVACAINE LIPOSOME 266 MG/20 ML VIAL INJ (10:47)
[2023-12-14] MEDS: BUPIVACAINE 0.25% (PF) 60 ML, EPINEPHrine 0.15 MG INJ (10:48)
--- NOTE | 2023-12-14 14:10 | PM.OP.1 ---
Operative Date/Time/Diagnoses Date of procedure: 12/14/23 Time of procedure: 10:30 Pre-op diagnosis: 1. L4-5 spinal stenosis 2. L4-5 bilateral foramen stenosis 3. History of L5-S1 fusion with instrumentation 4. Morbid obesity Post-op diagnosis: same Procedure & Clinicians Procedure: 1. L4-5 posterolateral and posterior interbody fusion 2. L4-5posterior interbody cage placement 3. L5-S1 posterior non-segmental instrumentation removal 4. L5-S1 revision laminectomy with exploration of fusion 5. L4-5, L5-S1 posterior segmental instrumentation with pedicle screw placement 6. L4-5 posterolatearl fusion 7. [place] of bone marrow from iliac crest through a separate incision 8. Utilization of microsurgical technique and operating microscope 9. Utilization of robotic assisted navigation Same procedure as scheduled: Yes Indications: Patient has been having chronic back pain and worsening lumbar radiculopathy. Patient has MRI showing severe L4-5 level bilateral foraminal stenosis due to advanced facet arthropathy bilaterally correlating with her worsening back pain radiculopathy. Patient has a history of L5-S1 lumbar fusion and was doing well until recently. Patient failed multiple conservative management with worsening pain weakness and numbness in her lower extremity. Patient has been having difficulty performing activity of daily living. After discussing risks benefits of treatment options, patient elected proceed with surgery. Surgeon: Jamari Mcclain Hedis Manager: Inga Padilla Click Yes if Unassisted: No Anesthesia Type: General Operative Notes Closure Type: primary Specimen(s): none sent Prosthetic devices, grafts, tissues, transplants, or devices: Globus CREO MIS screws, Rise cage Applied: catheter Estimated Blood Loss (mL): 450 Blood products transfused: none Procedure in detail: Patient was seen in the preoperative area. Risks and benefits of the surgery was discussed with the patient. Informed consent was obtained from the patient and placed in the chart. Surgical site was marked. Patient was taken to the operative room. General anesthesia was administered. Prophylactic antibiotic was given to the patient less than 30 min before the incision was made. Patient was placed into a prone position on the Nir table. Patient's back was then prepped and draped in the sterile fashion. Time-out was performed at this time. After patient was prepped and draped, patient's PSIS was palpated and marked bilaterally. Small 1 cm incision was made over the PSIS for placement of the reference probes. Two trocar was placed into the PSIS 1 on each side. The reference probe was attached to the trocar of the reference apparatus. At this time the C-arm imaging was used to confirm AP and lateral of L4, L5, and S1 vertebrae and merged the C-arm imaging using the Meludia robotic navigation system with the CT of the lumbar spine. After successful merging was completed and confirmed, skin marker was used to peyman out the skin incision using the Meludia robotic arm. Bilateral incision was made at this time. Using patient's previous scar incision was made over the L5-S1 interval on the left side. Fascia was incised in line with skin incision. Patient's previously placed hardware over the L5-S1 level was identified by dissecting down to the level the hardware using a Bovie and a Lorenzo. The locking caps which was removed using globus screwdriver. The locking curtis was then removed from the tulips of the pedicle screws using a Jeanne. The pedicle screws were then removed using the screwdriver. The screws were found to have good purchase at L5-S1 level. Exposure and removal of the hardware was made much more difficult due to patient's morbid obesity and significant amount of subcutaneous fat making visualization difficult. Extra time and effort was spent to retract and expose the hardware and also planning for TLIF and placement of implant at L4 level. Pre templated trajectory was used and guided using the Meludia robotic navigation system for left L4, L5 and S1 pedicle screws and right L4, L5, and S1 pedicle screws placement. This was done by using the robotic arm to guide the high-speed bur to make a cortical entry point. Next a drill was placed also using the robotic arm and guided using the navigation system drilling partially through bilateral L4, L5, S1 pedicles. Next L4, L5, S1 pedicle screws it was pre templated and measured was placed onto the power taxi driver supervisor and inserted into the pedicles bilaterally. After all 6 screws were placed C-arm imaging was taken of both AP and lateral to confirm the placement. Excellent placement of the screws were confirmed and a matched precisely with the pre planned screw placement using the navigation system. MARs retractor was inserted using [email or web address].comivation guidence. Globus MARS retractors was placed inside the incision and docked onto the L4 lamina. Using microsurgical technique and operating microscope, a L4 laminectomy and L4-5 facetectomy was performed using a Kerrison rongeur. Patient was found have severe lateral recess and neural foramen stenosis which was fully decompressed after the laminectomy facetectomy. The laminectomy and facetectomy was performed in order to decompress patient's cauda equina as well as the nerve roots exiting at the L4-5 level. More than 75% of the facets were removed during the process of decompression rendering L4-5 level grossly unstable and required a fusion procedure at the same time. The disc space at L4-5 was identified, and a total diskectomy was performed at L4-5 level. The endplates were decorticated using a rasp and shaver. The total diskectomy and decortication was performed at L4-5 level in order to to accomplish a L4-5 fusion. The local bone from the laminectomy and facetectomy was saved for local bone grafting. After the total diskectomy and decortication was completed, Globus Viacel bone graft material was combined with local bone that was harvested earlier. At this time, a separate skin is incision was made over the iliac crest. A Jamshidi needle was inserted into the iliac crest through a separate skin incision. 5 cc of bone marrow aspiration was obtained through the separate skin incision using a Jamshidi needle from the iliac crest. The bone marrow aspiration was combined with local bone and the Trifecta bone grafting material. The bone grafting material was placed into the L4-5 interbody space along with a expandable cage. The cage was expanded to its maximum height using the torque limiting screwdriver. The disc preparation as well as the cage insertion were also performed under navigation guidance. After the cage was placed, AP and lateral C-arm imaging was taken to confirm placement of the cage and excellent position was confirmed. The fusion mass on the right side of L5-S1 was exposed by performing a right-sided hemilaminectomy at L5-S1 level. The hemilaminectomy was performed using the Kerrison rongeur to undercut the lamina as well removing additional epidural scar tissue for purpose of decompressing the epidural space. The fusion mass was explored and was found have visible motion indicating pseudoarthrosis. Globus MARS retractor was inserted and docked onto the L4-5 L5-S1 posterolateral gutter. Using the power drill, posterior-lateral decortication was performed at L4-5 L5-S1 level until bleeding cortical bone was identified. The remaining bone grafting material was placed into the L4-5 L5-S1 posterior lateral gutter he order to accomplish posterolateral fusion at the L4-5 L5-S1 level. At this time the tulips were attached to the L4-L5 and S1 pedicle screw shanks. This was done in L4-L5 S1 pedicles bilaterally. After measuring the length of the rods, they were inserted into the tulips of the pedicle screws and locked in place using locking caps and torque limiting screwdriver bilaterally. Total 6 caps and 2 titanium rods was used in order to complete the posterior instrumentation construct. After all the hardware was placed, and confirmed with AP and lateral C-arm imaging, the wound was then irrigated with sterile normal saline and packed with Ray-Mike gauze for 3 min to accomplish hemostasis. After the gauze was removed the deep fascia was closed with #1 Vicryl suture. The subcutaneous layer was closed with 2-0 Vicryl. The skin was closed with skin ben. Patient tolerated the procedure well. There were no complications. Neuro monitoring system was used to monitor patient's neurologic status throughout entire procedure. There was no disturbance of the neural monitoring signals throughout the case. The Operation could not have been safely performed without compromising the technical result or length of the procedure, without the assistance of a skilled certified ophthalmic surgical assistant. The certified ophthalmic surgical assistant was medically necessary for proper positioning, retraction and manipulation of instruments, proper exposure, surgical preparation, and manipulation of tissue. Complications: none Post-operative Condition: stable Disposition: PACU Plan for aftercare: Admit to inpatient hospital
[2023-12-14] MEDS: ONDANSETRON 4 MG/2 ML INJ IV (14:33)
[2023-12-14] MEDS: hydrOXYzine 50 MG/ML INJ 25 MG IM (14:34)
[2023-12-14] MEDS: HYDROMORPHONE 1 MG INJ IV (14:36)
[2023-12-14] MEDS: OXYCODONE IR 5 MG TABLET PO ×2 (14:36→15:00)
[2023-12-14] MEDS: LACTATED RINGERS 1,000 ML 125 ML IV ×2 (16:06→19:50)
[2023-12-14] MEDS: SENNOSIDES 8.6 MG TABLET 17.2 MG PO (21:37)
[2023-12-14] MEDS: DOCUSATE 100 MG CAPSULE PO (21:38)
[2023-12-15 02:00] VITALS: BP 133/86; PULSE 74; RESP 18; TEMP 37; O2SAT 96
[2023-12-15] MEDS: CEFAZOLIN 2 GM/100 ML PREMIX 100 ML IV (03:00)
[2023-12-15] MEDS: LACTATED RINGERS 1,000 ML 125 ML IV (03:03)
[2023-12-15] MEDS: OXYCODONE IR 10 MG TABLET PO ×3 (05:01→20:04)
[2023-12-15 06:09] LABS: Hematocrit 36.6 % (36-46); Hemoglobin 12.2 g/dL (12.0-16.0)
[2023-12-15] MEDS: DOCUSATE 100 MG CAPSULE PO ×2 (08:43→20:04)
[2023-12-15] MEDS: ACETAMINOPHEN 325 MG TABLET 650 MG PO (08:44)
--- NOTE | 2023-12-15 09:31 | OT.IP.EVAL ---
Current Diagnoses Spondylolisthesis, lumbar region (12/14/23) Spinal stenosis, lumbar region with neurogenic claudication (12/14/23) Radiculopathy, lumbar region (12/14/23) Arthrodesis status (12/14/23) Surgery Performed Operation Date: 12/14/23 10:15 Actual Procedures p L4-5 TLIF, L4-S1 PSF with revision hardware -Robotic fusion - Jamari Mcclain MD Past Medical History (Last Updated 12/08/23 @ 10:10 by Kim Helms RN) Arthritis Back pain Easy bruisability Fatty liver Neuropathy Osteoporosis Seasonal allergies Spinal cord injury (03/2014) Surgical History (Last Updated 12/08/23 @ 10:08 by Kim Helms RN) History of section History of lumbar spinal fusion (07/28/20) History of surgery Hx of colonoscopy (08/2023) Hx of dilation and curettage Hx of tonsillectomy Hx of tubal ligation Occupational Therapy Inpatient Evaluation/Re-Eval M1 PT/OT-IP Prior Functional Status Start: 12/15/23 09:43 Freq: NEEDED Status: Active Protocol: Document 12/15/23 09:43 [facility] (Rec: 12/15/23 10:01 [facility] [id number]) Medical Review Prior Functional Status Medical History Reviewed Yes Diet/Fluid Consistency Regular Communication WNLs Mobility and Gait Mod I with rollator Activities of Daily Living and IADL's Mod I with rollator and family lifted heavy objects into home. Pt having more difficulty to do her socks and shoes. Pt states has always have difficulty to do her hygiene needs even having tried assisted devices. Prior Functional Level (Other details) Pt's daughter to be staying with her to assist for the week. Social History Household Members none Living Arrangements Apartment/Condo Number of Floors (Floors) One Floor Number of Stairs To Enter/Railing? Pt lives in converted building next to daughter and JOCELIN, no steps to enter Home Environment Standard Height Toilet,Walk in Shower,Built-In Shower Seat Home Equipment Front Wheel Walker,Four Wheel Walker,Straight Cane,Bedside Commode,Hand Held Shower,Leg Roofer Helper,Log Haul Operator,Grab Bars In Shower Employment Status Retired M2 OT-IP Current Condition Start: 12/15/23 09:43 Freq: Status: Active Protocol: Document 12/15/23 09:43 [facility] (Rec: 12/15/23 10:01 [facility] [id number]) Occupational Therapy Current Condition Current Condition Evaluation Date 12/15/23 Treatment Diagnosis S/P L4-5 TLIF, L4-5 PSF with hardware revision Diagnosis Onset Date 12/14/23 Post Operative Precautions Lumbar Precautions Log Roll,No Twisting,Limit Bending,Lifting Restriction of 10 lbs,Gait Belt above Incisional Area M3 OT- IP Subjective and Pain Start: 12/15/23 09:43 Freq: Status: Active Protocol: Document 12/15/23 09:43 [facility] (Rec: 12/15/23 10:01 [facility] [id number]) OT- Subjective Occupational Therapy Visit Type Type Initial Evaluation Visit Start Time 08:53 Visit Stop Time 09:31 Occupational Therapy Visit Comments Patient Comments Pt agreed to get up. Patient/Caregiver Goals TO go home. OT Pain Assessment Pain When Pain Assessed During Mobility Pain Present Pain Present Pain Reported Location LLE Intensity 8 Scale Used Numeric (0 - 10) M4 OT- IP ADL's Start: 12/15/23 09:43 Freq: Status: Active Protocol: Document 12/15/23 09:43 [facility] (Rec: 12/15/23 10:01 [facility] [id number]) OT ENQ-Rojk-[id number] General Evaluation Self-Feeding Ability Independent OT ADL-Grooming Comments OT Grooming Comments Not performed. OT ADL-Oral Care Comments Oral Care Comments Not performed. OT ADL-Dressing General Eval Lower Body Dressing Ability Maximum Assistance Comments OT Dressing Comments Able to talk about LB dressing equipment. Pt will benefit from getting a sock aid. OT ADL-Toileting Comments OT Toileting Comments Pt states has always had difficulty with wiping and hygiene needs. Pt states did try a toilet paper aid after last surgery but did not like it and ended up just continuing to bend forwards to wipe which is highly contraindicated for her back precautions. Strongly encouraged her to think try other types of toilet paper aids, get a bidet or assist. OT ADL-Bathing Comments OT Bathing Comments Suggested pt get a longer handled shower spray to assist to wash pericare needs or use of long thin towel to help from bending at her trunk to best follow her back precaution needs. M5 OT- IP IADL's Start: 12/15/23 09:43 Freq: Status: Active Protocol: Document 12/15/23 09:43 [facility] (Rec: 12/15/23 10:01 [facility] [id number]) OT-Instrumental Activities of Daily Living Deficits IADL Deficits Identified Deficits Home Safety Awareness Awareness of Need for Assistance at Home Good Awareness Ability to Problem Solve Emergency Able to Problem Solve Situations Meal Preparation Meal Preparation Caregiver Provides Assist Vision Impaired Teacher Vision Impaired Teacher Caregiver Provides Assist M6 OT- IP Functional Cognition Start: 12/15/23 09:43 Freq: Status: Active Protocol: Document 12/15/23 09:43 [facility] (Rec: 12/15/23 10:01 [facility] [id number]) Cognitive Factors Limiting Selfcare Function Cognitive Ability Level of Alertness Alert Patient Orientation Name,Age,Birthday,Month,Date, Year,Day of Week,Place, Situation Ability to Follow Commands Able to Follow One Step Commands Cognitive Comments Cognitive Assessment Comments Pt able to follow commands for ADL and mobility needs and needing cues and assist to incorporate her back precautions for log rollng needs. OT- Vision and Hearing OT- Hearing Assessment OT- Hearing Assessment WFL OT- Vision Assessment Visual Acuity WFL Visual Attentiveness WFL Occular Pursuits WFL M7 OT- IP Mobility and Balance Start: 12/15/23 09:43 Freq: Status: Active Protocol: Document 12/15/23 09:43 [facility] (Rec: 12/15/23 10:01 [facility] [id number]) OT- Bed Mobility Assessment Rolling Type of Rolling Roll to Right Level of Assistance Moderate Assistance Supine to Sit Supine to Sit Assist Moderate Assistance OT-Transfer Assessment Sit to and From Stand Sit to and from Stand Moderate Assistance,2 Person Assistance Transfers Transfer Ability Moderate Assistance,2 Person Assistance Technique Transfer Destination Bed,Chair Transfer Technique Stand Step Pivot Devices Transfer Assistive Devices Gait Belt,Front Wheeled Walker Comments Mobility Comments MODA to be able to roll to the right and needing use of bed rail which pt does not have at home. MODA x1-2 to stand to FWW and left foot cramping and curling up initially. MODA X 2 with FWW to transfer to the recliner. Assist for guiding and FWW and for her balance. Pt needing cues to tighten her quads when trying to move. OT- Balance Assessment Sitting Balance and Reactions Static Sitting Balance Ability Good Dynamic Sitting Balance Ability Fair Standing Balance and Reactions Static Standing Balance Ability Poor Dynamic Standing Balance Ability Poor M8 OT- IP Objective Assessments Start: 12/15/23 09:43 Freq: Status: Active Protocol: Document 12/15/23 09:43 [facility] (Rec: 12/15/23 10:01 [facility] [id number]) OT Gross Range of Motion Upper Extremity Range of Motion Assessment Within Functional Limits OT Strength Upper Extremity Strength Assessment Within Functional Limits M9 OT- IP Assessment and Plan Start: 12/15/23 09:43 Freq: Status: Active Protocol: Document 12/15/23 09:43 [facility] (Rec: 12/15/23 10:01 [facility] [id number]) OT Summary Assessment and Plan Potential Rehabilitation Potential Good Analytic Complexity at Evaluation Low Summary OT Impairments Pain,Strength,Balance, Functional Mobility,Grooming, Dressing,Toileting,Bathing, Toilet Transfers,Shower Transfers,Activity Tolerance Progress Towards Goals Slow Progress due to Pain,Slow Progress due to Medical Issues,Slow Progress due to Activity Tolerance Assessment Summary Pt low complexity and main barriers are pain, having difficulty to move her LLE and needing 2 person assist for transfer at this time. Pt has had difficulty with doing her hygiene needs and being able to follow her back precautions , OT to continue to go over possible equipment needs for the pt. Pending progress and caregiver training with her daughter- home versus skilled rehab. Goals Grooming Goal Independent Dressing Goal Independent,Log Haul Operator,Sock Aid Toileting Goal Minimal Assistance,Toilet Paper Aid Bathing Goal Minimal Assistance,Hand Held Shower Sprayer,Long Handled Sponge or [place] Toilet Transfer Goal Independent Shower Transfer Goal Standby Assistance Days to Meet Goals 10 Frequency of Treatment Frequency Of Treatment Once a Day Treatment Plan OT Treatment Plan ADL Training,Functional Mobility,Patient/Family Education,Discharge Planning Other Treatment Recommendations and Next Practice LB dressing needs. Treatment Focus Discharge Recommendations OT Discharge Recommendations Home with Assistance,SNF Rehab ,Home vs SNF Home Equipment Needs sock aid Transportation Needs at Discharge Wheelchair/Cabulance
--- NOTE | 2023-12-15 10:26 | PT.IIE ---
Current Diagnoses Spondylolisthesis, lumbar region (12/14/23) Spinal stenosis, lumbar region with neurogenic claudication (12/14/23) Radiculopathy, lumbar region (12/14/23) Arthrodesis status (12/14/23) Surgery Performed Operation Date: 12/14/23 10:15 Actual Procedures p L4-5 TLIF, L4-S1 PSF with revision hardware -Robotic fusion - Jamari Mcclain MD Surgical History (Last Updated 12/08/23 @ 10:08 by Kim Helms, RN) History of section History of lumbar spinal fusion (07/28/20) History of surgery Hx of colonoscopy (08/2023) Hx of dilation and curettage Hx of tonsillectomy Hx of tubal ligation Medical History (Last Updated 12/08/23 @ 10:10 by Kim Helms RN) Arthritis Back pain Easy bruisability Fatty liver Neuropathy Osteoporosis Seasonal allergies Spinal cord injury (03/2014) Physical Therapy Inpatient Evaluation/Re-Eval M1 PT/OT-IP Prior Functional Status Start: 12/15/23 08:28 Freq: NEEDED Status: Active Protocol: Document 12/15/23 09:24 MB (Rec: 12/15/23 09:42 MB [id number]) Medical Review Prior Functional Status Medical History Reviewed Yes Diet/Fluid Consistency Regular Communication WNLs Mobility and Gait Mod I with rollator Activities of Daily Living and IADL's Mod I with rollator and family lifted heavy objects into home Social History Household Members none Living Arrangements Apartment/Condo Number of Floors (Floors) One Floor Number of Stairs To Enter/Railing? Pt lives in converted building next to daughter and JOCELIN, no steps to enter Home Environment Standard Height Toilet,Walk in Shower,Built-In Shower Seat Home Equipment Front Wheel Walker,Four Wheel Walker,Straight Cane,Bedside Commode,Hand Held Shower, Property Condition Assessor,Grab Bars In Shower Employment Status Retired M1 PT/OT-IP Prior Functional Status Start: 12/15/23 09:43 Freq: NEEDED Status: Active Protocol: Document 12/15/23 09:43 [facility] (Rec: 12/15/23 10:01 [facility] [id number]) Medical Review Prior Functional Status Medical History Reviewed Yes Diet/Fluid Consistency Regular Communication WNLs Mobility and Gait Mod I with rollator Activities of Daily Living and IADL's Mod I with rollator and family lifted heavy objects into home. Pt having more difficulty to do her socks and shoes. Pt states has always have difficulty to do her hygiene needs even having tried assisted devices. Prior Functional Level (Other details) Pt's daughter to be staying with her to assist for the week. Social History Household Members none Living Arrangements Apartment/Condo Number of Floors (Floors) One Floor Number of Stairs To Enter/Railing? Pt lives in converted building next to daughter and JOCELIN, no steps to enter Home Environment Standard Height Toilet,Walk in Shower,Built-In Shower Seat Home Equipment Front Wheel Walker,Four Wheel Walker,Straight Cane,Bedside Commode,Hand Held Shower,Leg Piercing Artist,Property Condition Assessor,Grab Bars In Shower Employment Status Retired M2 PT-IP Current Condition Start: 12/15/23 08:28 Freq: NEEDED Status: Active Protocol: Document 12/15/23 09:24 MB (Rec: 12/15/23 09:42 MB [id number]) Physical Therapy Current Condition Current Condition Evaluation Date 12/15/23 Treatment Diagnosis L4-5, S1 fusion M3 PT-IP Subjective Start: 12/15/23 08:28 Freq: NEEDED Status: Active Protocol: Document 12/15/23 09:24 MB (Rec: 12/15/23 09:42 MB [id number]) Subjective Physical Therapy Visit Type Type Initial Evaluation Visit Start Time 08:53 Visit Stop Time 09:17 Number of PHARMACY SALES REPRESENTATIVE Visits 0 Physical Therapy Visit Comments Patient Comments Pt states that she cannot move her left leg and it was the one that was troublesome pre- op. Therapy Pain Assessment Pain When Pain Assessed During Mobility Pain Present Pain Present Pain Reported Location LLE Intensity 8 Scale Used Ray-Truong (Faces) Description Spasm Pain Behaviors Calling Out,Crying,Facial Grimacing,Guarding Pain Management Techniques Modification of Treatment,Re- positioning back Intensity 8 Scale Used Ray-Truong (Faces) M4 PT-IP Mobility and Gait Start: 12/15/23 08:28 Freq: NEEDED Status: Active Protocol: Document 12/15/23 09:24 MB (Rec: 12/15/23 09:42 MB [id number]) PT-Bed Mobility Assessment Rolling Type of Rolling Roll to Left Level of Assist Contact Guard Assistance, Moderate Assistance,1 Person Assistance Supine to Sit Supine to Sit Contact Guard Assistance, Moderate Assistance,1 Person Assistance,Bedrails Scooting Scooting to Edge of Bed Contact Guard Assistance PT-Transfer Assessment Sit to and From Stand Sit to and from Stand Moderate Assistance,2 Person Assistance,Use of Upper Extremities Equipment Transfer Assistive Device Gait Belt,Front Wheeled Walker Orthotic/Prosthetic Devices or Brace: No Transfers Transfer Destination Chair Transfer Technique Stepping Transfer Ability Level of Assist Moderate Assistance,2 Person Assistance,Use of Upper Extremities Comments Mobility Comments PT lowers bed and encourages pt to bend knees to protect back and she cannot bend her left leg, she states, and finally is able to perform small HS. Pt is able to initiate log rolling to the left with cues, strap around left foot to help scoot her leg to the left and then use head rail. Two time boost of mod A with pad to help scoot pt over onto her left side by assisting with hips. Increased time and encouragement to scoot out to the EOB. Once standing, cues to push through arms on RW and increased tone through left foot/toes and functional weakness and pt with c/o high pain through her foot described as spasm pain. WB for 2 minutes does not help symptoms. Gait Assessment Gait Gait Assistance Required: Moderate Assistance,2 Person Assist Distance (Feet) 1 Able to Maintain Weight Bearing Status Yes During Gait Assistive Devices Assistive Device Gait Belt,Front Wheeled Walker Orthotic/Prosthetic Devices or Brace: No Gait Deviations General Gait Pattern Antalgic,Decreased Stride Length,Decreased Feet Clearance,Flexed Trunk,Step-to Gait,Wide Based Gait Factors Limiting Gait Function Factors Limiting Gait Function Abnormal Tonal Influences, Decreased Activity Tolerance, Difficulty Following Directions,Incoordination, Limited Range of Motion,Pain, Poor Balance,Poor Safety Awareness Comments Gait Comments Overall, pt tends to maintain flexed posture. She has trouble clearing feet and WB on the left d/t some curling of tones/tone spinal cord-type reaction to standing and WB and increased pain. LLE appears weak in standing with functional foot drop PT-Balance Assessment Sitting Balance and Reactions Static Sitting Balance Ability Good Dynamic Sitting Balance Ability Fair Standing Balance and Reactions Static Standing Balance Ability Poor Dynamic Standing Balance Ability Poor Device Used RW M5 PT-IP Objective Assessments Start: 12/15/23 08:28 Freq: NEEDED Status: Active Protocol: Document 12/15/23 09:24 MB (Rec: 12/15/23 09:42 [id number]) Orientation Orientation/Cognition Level of Alertness Alert Orientation Name,Age,Birthday,Month,Date, Year,Day of Week,Place, Situation Language Function Ability No Deficits Noted Safety Awareness Decreased Safety Awareness Memory Description No Deficits Noted Gross Range of Motion Lower Extremity ROM Assessment Left Impaired Impairments Pt does not tolerate ROM or MMT and is able to extend left knee with LAQ sitting EOB to about -10 deg. She has active left ankle ROM sitting grossly 35% normal range. Strength Lower Extremity Strength Assessment Left Impaired Comments Strength Comments Pt does not tolerate MMT and once spine and spinal cord is loaded with standing, her LLE appears more weak than when sitting. Sensation Assessment Sensation Gross Sensation Left LE Impaired Sensation Description Hyperesthesia Muscle Tone Muscle Tone WNL No Comments Muscle Tone Comments Increased flexor tone in toes of left foot once standing M6 PT-IP Treatment Start: 12/15/23 08:28 Freq: NEEDED Status: Active Protocol: Document 12/15/23 09:24 MB (Rec: 12/15/23 09:42 [id number]) Physical Therapy Treatment Exercises Exercises Ankle Pumps,Heel Slides Education Education Provided Precautions,Weight Bearing Status,Post-Op Packet,Safety M7 PT-IP Assessment and Plan Start: 12/15/23 08:28 Freq: NEEDED Status: Active Protocol: Document 12/15/23 09:24 MB (Rec: 12/15/23 09:42 [id number]) PT Summary Assessment and Plan Potential Rehabilitation Potential Good Status of Condition at Evaluation Evolving Summary Impairments Pain,ROM,Strength,Balance, Coordination,Sensation,Tone, Bed Mobility,Transfers,Gait, Activity Tolerance Progress Towards Goals Slow Progress due to Pain,Slow Progress due to Activity Tolerance Assessment Summary Pt is a 73 y/o female presenting with high pain in back as well as tone changes and pain in LLE once WB in standing. Her left toes curl when up and she has trouble tolerating WB. Pt requires mod A of two for stepping to the chair to the right with RW. She will benefit from acute and post-acute PT to improve mobility, function and to decrease BOC. Goals Bed Mobility Goal Independent Transfer Goal Independent,Front Wheeled Walker,Four Wheeled Walker Gait Goal Independent,Front Wheel Walker ,Four Wheel Walker Gait Distance 75 Days to Meet Goals 5 Frequency of Treatment Frequency Of Treatment Twice a Day Treatment Plan Physical Therapy Treatment Plan Bed Mobility Training,Transfer Training,Gait Training, Therapeutic Exercise,Balance Retraining,Post Op Education, Discharge Planning,Hot or Cold Pack,Neuromuscular Re-ed, Coordination Retraining,Manual Therapy Other Recommendations and Next Treatment Con't to increase mobility as Focus pt able Precautions Lumbar Precautions Log Roll,No Twisting,Limit Bending,Lifting Restriction of 10 lbs,Gait Belt above Incisional Area Weight Bearing Status Weight Bearing Status Weight Bear as Tolerated Recommendations To Nursing Amount of Assist Needed 2 Person Assist Discharge Recommendations PT Discharge Recommendations Home vs SNF Transportation Needs at Discharge Wheelchair/Cabulance
[2023-12-15 10:40] VITALS: BP 104/55; PULSE 100; RESP 16; TEMP 37; O2SAT 95
--- NOTE | 2023-12-15 11:17 | CM.DANOTE ---
Initial DCP Assessment Visit Note Reviewed EMR and team rounds for status updates. Met with pt at bedside and introduced self and role, pt was found laying down, appearing uncomfortable, but alert/oriented and able to discuss her needs/concerns/preferences for discharge. She resides in a cottage adjacent to her dtr's home, her dtr assists with caregiving assistance, and will plan to transport pt back home once she's medically cleared for d/c. Payor: Medicare Attending: Dr. Mcclain Pt is a 73 year-old F with a PMH of past TLIF done 07/28/20. Since then, she has experienced progressive difficulty with walking due to pain/numbness in her leg/foot, and uses a walker at baseline for mobility. Pt was able to briefly work with therapies this morning, however she was limited by pain/weakness/numbness. Plan is for PT/OT to continue to work with her, pain management, and increase mobility. DCP will continue to follow and assist with final disposition plan for d/c, likely home w. HH vs. SNF Rehab, pending final recommendations from therapies. Discharge Planning/Care Management Advanced directive,confirm from FACILITY Start: 12/14/23 15:56 Freq: Q24H Status: Active Protocol: Document 12/14/23 15:58 EV (Rec: 12/14/23 15:58 EV [id number]) Advance Directive, confirm on record Time 15:58 Person contacted Mariajose Copy received No CM Discharge Assessment Start: 12/15/23 11:12 Freq: Status: Active Protocol: Document 12/15/23 11:12 DPL (Rec: 12/15/23 11:15 DPL [id number]) Discharge Planning Assessment Assigned Shuttle Hand PRUDENCE Bryant Advance Directives? Yes Advance Directives on File No History Provided By Patient,Medical Record Has Patient been admitted in last 30 No days? Prior Living Arrangements Apartment/Condo Household Members none Type of transporation used prior to Drives own vehicle admit Independent with ADL's Yes Is patient alert and oriented? Yes Needs Assistance With Grooming Comment N/A Caregiver for Another No DME Already Rented / Owned Bath Bench,Elevated Toilet Seat,FWW / Walker,Cane Comment Home vs. SNF Rehab, pending PT /OT eval/recommendations and pt's ability to improve in mobility. Barriers to Discharge No Discharge Plan Home Transportation Arrangement Dtr vs. Facility, depending on final disposition. Additional Comment Pending If patient plan is SNF: Has PASSR been No completed? Medicare Choice List Provided No Whiteboard Updated in Patient Room with Yes name and ext. # of Shuttle Hand Review Status In Process Please Provide Date Initial DC 12/15/23 Assessment Was Performed Pre-Anesthesia Assessment Start: 12/08/23 09:51 Freq: Status: Active Protocol: Document 12/08/23 09:52 CAB (Rec: 12/08/23 10:19 CAB [id number]) Pre-Anesthesia Assessment Patient Information Reviewed Via Phone Assessment Diagnostic Results BMP/CMP,CBC,EKG Comment Labs/EKG @ Primary Care Provider Rosa Lechuga Seen Specialist in Last 12 Months Yes Specialist Seen Singeing Torch Operator,Orthopedist Primary Language Swedish Preferred Language Swedish Arts Therapist Required No Height 157.48 cm Weight 108.862 kg Body Mass Index (BMI) 43.9 Hearing Ability Normal Visual Impairment No Limitations Visual Assist None Dentition Type Teeth, Natural Present,Teeth, Missing Barriers to Learning None Other Aids Yes Hx Anesthesia Reactions No Hx Family Anesthesia Reaction No Hx Malignant Hyperthermia No Hx Blood Transfusions No Hx Blood Transfusion Reaction No Anesthesia Review Requested No Test Carrier No alcohol intake former Smoking Status Never smoker Substance Use Type does not use Pain Present Pain Reported Musculoskeletal Symptoms Abnormal Gait,Back Pain, Difficulty Walking,Joint Pain, Muscle Cramps,Muscle Spasms, Numbness,Radiating Pain into Limb,Tingling History of Falling (Recent or History of No ) Patient is completely paralyzed or No completely immobile Prosthesis or Orthotic Device Front Wheel Walker Mental Status Oriented to own ability Is patient on oxygen? No Does patient have BLACKMON/SOB No Hx Sleep Apnea No CPAP/BIPAP use not prescribed Currently Taking a Beta Demetria No Can You Climb a Flight of Stairs Without Yes SOB Hx Chest Pain No Hx SOB No Hx Syncope or Dizziness Yes: Dizziness A little, related to my balance issues Anti-Coagulant Therapy No Has a Air Saw Operator No Cardiac Testing No Hx Pacemaker/ICD No Pacemaker Rep Required? No Cardiac Clearance Received Not Applicable Diet Type At Home Regular Dysphagia No Gastrointestinal Symptoms Constipation Bladder Pattern Frequency,Incontinent, Stress, Urgency Urinary Catheter Present No Hx Urinary Self Catheterization No Diabetes No Patient No Lactating No Hx Drug Resistant Organism No Presence of External or Internal Medical No Devices Marital Status Single Lives With children,none Current Living Arrangements House Comment Lives in separate dwelling on daughter's property Number of Floors (Floors) One Floor Support System Child/Children Does the Patient Have Assistance After Yes: Horace and son in-law Surgery will assist w/care at DC Patient Discharge Plan Description Return Home Comment Pt advised overnight length of stay per surgeon Feels Safe in Current Environment Yes Been Physically Hurt or Threatened By a No Person in Current Environment Do you have thoughts of harming yourself None or others? Are you currently considering suicide? No Do you have a plan to hurt yourself or No Plan others? Do You Have Any Spiritual Beliefs That No May Affect Your HC Choices? Do You Have Any Cultural Practices That No May Affect Your HC Choices? Comment Brandon Who Can We Speak to About Patient's Care Family, friends Identifying Code for Release of Patient Declines to issue Information Health Care Proxy/Next of Kin Norma (daughter) Health Care Proxy Emergency Contact Name Norma (daughter) Emergency Contact Advance Directives? Yes Advance Directives on File No Requested Patient Bring Advanced Yes Directives DOS Power of Pyrometallurgical Engineer No PAC Instructions Durable medical equipment, Medications to take/avoid, Nasal antibiotic,No ETOH/ petroleum product on skin DOS, NPO,Pre-surgical wash,Sensory aids,Sturdy shoes/comfortable clothes,Do not bring valuables and remove jewelry
--- NOTE | 2023-12-15 12:07 | PM.PNPO.1 ---
Subjective Subjective Date Patient Seen: 12/15/23 Time Patient Seen: 12:07 Interval history: Patient notes pain has been moderate. She notes her left leg feels numb and was having difficulty lifting her leg with physical therapy this morning. She did difficulty similar to this prior to surgery in the left leg. No fever chills. No nausea /vomiting. Patient lives with family in a ?[id number] ?apartment. No steps in her house. Exam Vital Signs (past 8 hours): - 12/15/23 10:40 Temperature 98.6 F Pulse Rate 100 H Respiratory Rate 16 Blood Pressure 104/55 L Pulse Oximetry 95 Oxygen Delivery Method Room Air Oxygen Flow Rate 0 Narrative Exam Narrative: 73-year-old female resting comfortably in bedside chair in no apparent distress. Dressing is clean, dry and intact. She has trace weakness with dorsiflexion and great toe extension on the left compared to 5/5 on the right. She has 5/5 strength with plantar flexion on the left. Sensation is grossly intact to light touch bilateral lower extremities. Const General: cooperative Nutritional Appearance: obese (BMI 45.4) and overweight Orientation: alert Resp Effort & Inspection: normal respiratory effort and able to speak in complete sentences Objective Labs 12/15/23 05:40 Labs: Laboratory Results - last 24 hr 12/15/23 05:40 Hgb 12.2 Hct 36.6 PFSH Medical History Osteoporosis Fatty liver Seasonal allergies Easy bruisability Arthritis Back pain Spinal cord injury (03/2014) Neuropathy Surgical History Hx of colonoscopy (08/2023) History of lumbar spinal fusion (07/28/20) History of surgery Hx of tubal ligation History of section Hx of dilation and curettage Hx of tonsillectomy Social History household members: none Smoking Status: Never smoker alcohol intake: former Assessment & Plan Post-op Postoperative Procedures: Procedures Operation Date: 12/14/23 10:15 Actual Procedure Side Surgeon p L4-5 TLIF, L4-S1 PSF with revision hardware -Robotic fusion Jamari Mcclain MD Postoperative day: 1 Postoperative status: marginal pain control Postoperative status narrative: Stable status post L4-L5 fusion with L5-S1 posterior nonsegmental instrumentation removal revision laminectomy bleeding exploration of fusion. L4-L5, L5-S1 posterior segmental instrumentation with pedicle screw placement. Postoperative plan: routine post-op care Postoperative plan narrative: Multimodal pain management Mobilize with physical therapy, limit bending, twisting, lifting Discontinue Gutierrez catheter Keep dressing clean and dry Disposition likely home tomorrow
--- NOTE | 2023-12-15 14:45 | PT.IPTN ---
Current Diagnoses Spondylolisthesis, lumbar region (12/14/23) Spinal stenosis, lumbar region with neurogenic claudication (12/14/23) Radiculopathy, lumbar region (12/14/23) Arthrodesis status (12/14/23) Surgery Performed Operation Date: 12/14/23 10:15 Actual Procedures p L4-5 TLIF, L4-S1 PSF with revision hardware -Robotic fusion - Jamari Mcclain MD Physical Therapy Treatment Note M2 PT-IP Current Condition Start: 12/15/23 08:28 Freq: NEEDED Status: Active Protocol: Document 12/15/23 09:24 MB (Rec: 12/15/23 09:42 MB [id number]) Physical Therapy Current Condition Current Condition Evaluation Date 12/15/23 Treatment Diagnosis L4-5, S1 fusion M3 PT-IP Subjective Start: 12/15/23 08:28 Freq: NEEDED Status: Active Protocol: Document 12/15/23 15:31 TS (Rec: 12/15/23 15:43 TS [id number]) Subjective Physical Therapy Visit Type Type Treatment Note Visit Start Time 14:45 Visit Stop Time 15:05 Number of DINING ROOM SUPERVISOR Visits 20 Physical Therapy Visit Comments Patient Comments Pt found resting in chair, family in room, pt reports cramping or spasm in RLE/R foot, pt is agreeable to PT. Therapy Pain Assessment Pain When Pain Assessed During Mobility Pain Present Pain Present Pain Reported M4 PT-IP Mobility and Gait Start: 12/15/23 08:28 Freq: NEEDED Status: Active Protocol: Document 12/15/23 15:31 TS (Rec: 12/15/23 15:43 TS [id number]) PT-Transfer Assessment Sit to and From Stand Sit to and from Stand Contact Guard Assistance,1 Person Assistance Equipment Transfer Assistive Device Gait Belt,Front Wheeled Walker Orthotic/Prosthetic Devices or Brace: No Comments Mobility Comments Pt recalled 2/3 spinal precautions prior to mobility. STS from chair CGA with FWW, pt has some difficulty transitioning hands to FWW. She ambulated in room ~20'SBA with FWW and step to gait, pt reports cramping or spasm in RLE/R foot. STS x1 from chair again CGA with FWW, pt ambulated another 20' in room. Pt declined bed mobility at this time. Pt was left in chair, all needs met. Gait Assessment Gait Gait Assistance Required: Standby Assistance Distance (Feet) 40 Able to Maintain Weight Bearing Status Yes During Gait Assistive Devices Assistive Device Gait Belt,Front Wheeled Walker Orthotic/Prosthetic Devices or Brace: No Gait Deviations General Gait Pattern Antalgic,Decreased Stride Length,Decreased Feet Clearance,Flexed Trunk,Step-to Gait,Wide Based Gait Factors Limiting Gait Function Factors Limiting Gait Function Abnormal Tonal Influences, Decreased Activity Tolerance, Difficulty Following Directions,Incoordination, Limited Range of Motion,Pain, Poor Balance,Poor Safety Awareness Comments Gait Comments See mobility comments PT-Balance Assessment Sitting Balance and Reactions Static Sitting Balance Ability Good Dynamic Sitting Balance Ability Fair Standing Balance and Reactions Static Standing Balance Ability Fair Dynamic Standing Balance Ability Fair Device Used RW M5 PT-IP Objective Assessments Start: 12/15/23 08:28 Freq: NEEDED Status: Active Protocol: Document 12/15/23 09:24 MB (Rec: 12/15/23 09:42 MB [id number]) Orientation Orientation/Cognition Level of Alertness Alert Orientation Name,Age,Birthday,Month,Date, Year,Day of Week,Place, Situation Language Function Ability No Deficits Noted Safety Awareness Decreased Safety Awareness Memory Description No Deficits Noted Gross Range of Motion Lower Extremity ROM Assessment Left Impaired Impairments Pt does not tolerate ROM or MMT and is able to extend left knee with LAQ sitting EOB to about -10 deg. She has active left ankle ROM sitting grossly 35% normal range. Strength Lower Extremity Strength Assessment Left Impaired Comments Strength Comments Pt does not tolerate MMT and once spine and spinal cord is loaded with standing, her LLE appears more weak than when sitting. Sensation Assessment Sensation Gross Sensation Left LE Impaired Sensation Description Hyperesthesia Muscle Tone Muscle Tone WNL No Comments Muscle Tone Comments Increased flexor tone in toes of left foot once standing M6 PT-IP Treatment Start: 12/15/23 08:28 Freq: NEEDED Status: Active Protocol: Document 12/15/23 15:31 TS (Rec: 12/15/23 15:43 TS [id number]) Physical Therapy Treatment Education Education Provided Precautions,Weight Bearing Status,Post-Op Packet,Safety M7 PT-IP Assessment and Plan Start: 12/15/23 08:28 Freq: NEEDED Status: Active Protocol: Document 12/15/23 15:31 TS (Rec: 12/15/23 15:43 TS [id number]) PT Summary Assessment and Plan Potential Rehabilitation Potential Good Summary Impairments Pain,ROM,Strength,Balance, Coordination,Sensation,Tone, Bed Mobility,Transfers,Gait, Activity Tolerance Progress Towards Goals Progressing Toward Goals Assessment Summary Mariajose is making progress with her mobility this session . She is CGA for STS x2 with FWW. She progressed her gait to ~2x20' with rest break in between. She recalled 2/3 spinal precautions, did not recall no lifting. Daughter declined any caregiver training, has helped her mother in the past and has had training. PT is recommending home with 24/ assist. Goals Bed Mobility Goal Independent Transfer Goal Independent,Front Wheeled Walker,Four Wheeled Walker Gait Goal Independent,Front Wheel Walker ,Four Wheel Walker Gait Distance 75 Days to Meet Goals 5 Frequency of Treatment Frequency Of Treatment Twice a Day Treatment Plan Physical Therapy Treatment Plan Bed Mobility Training,Transfer Training,Gait Training, Therapeutic Exercise,Balance Retraining,Post Op Education, Discharge Planning,Hot or Cold Pack,Neuromuscular Re-ed, Coordination Retraining,Manual Therapy Other Recommendations and Next Treatment Con't to increase mobility as Focus pt able Precautions Lumbar Precautions Log Roll,No Twisting,Limit Bending,Lifting Restriction of 10 lbs,Gait Belt above Incisional Area Weight Bearing Status Weight Bearing Status Weight Bear as Tolerated Recommendations To Nursing Amount of Assist Needed 1 Person Assist Discharge Recommendations PT Discharge Recommendations Home with 24/7 Assist Available Transportation Needs at Discharge Private Vehicle
[2023-12-15] MEDS: SENNOSIDES 8.6 MG TABLET 17.2 MG PO (20:04)
[2023-12-15 21:43] VITALS: BP 133/60; PULSE 97; RESP 16; TEMP 37.3; O2SAT 95
[2023-12-16] MEDS: OXYCODONE IR 10 MG TABLET PO ×5 (05:51→19:49)
[2023-12-16 08:00] VITALS: BP 139/76; PULSE 98; RESP 16; TEMP 36.9; O2SAT 92
--- NOTE | 2023-12-16 08:34 | PM.DS.1 ---
History of Present Illness History of Present Illness Chief complaint: TLIF Narrative: Mariajose is a pleasant 73 year old female who is POD#2 s/p L4-L5 fusion with L5-S1 posterior nonsegmental instrumentation removal revision laminectomy bleeding exploration of fusion. L4-L5, L5-S1 posterior segmental instrumentation with pedicle screw placement by Dr. Mcclain. Overall patient reports her pain is improved from yesterday although she is still having moderate-severe left sided pain, mostly in her hip/buttock. Denies radiation of pain down her left leg or any significant back pain. Patient states she is walking around her room better today than she was yesterday but still reports having difficulty/pain with getting up from a seated position. She had her Gutierrez catheter discontinued just prior to our discussion this morning so she has not been able to void on her own yet. Does live in a [id number] apartment next to her daughter so she will have family/support at home when discharged from the hospital. There are no steps into her home. Has post-op pain medications at home already. Has walker at home for postop use as well. Patient still has some left sided weakness, she states that this started prior to surgery but has not improved s/p surgery 2 days ago. Denies any right sided symptoms. Denies fever, chills, chest pain, SOB, nausea, and vomiting. Discharge Providers Provider Date of admission: 12/14/23 08:40 Discharge Date: 12/16/23 Primary care physician: Rosa Lechuga MD Consults: 12/14/23 15:53 Consult to Occupational Therapy Evaluate & Treat Comment: Physician Instructions: Evaluate and treat Consult to Physical Therapy Evaluate & Treat Comment: Physician Instructions: Evaluate and Treat Discharge provider: Queenie Holman PA-C Summary Hospital Course Discharge Diagnosis: stable s/p L4-L5 fusion with L5-S1 posterior nonsegmental instrumentation removal revision laminectomy bleeding exploration of fusion. L4-L5, L5-S1 posterior segmental instrumentation with pedicle screw placement. Hospital Course: Hospital course complicated by poor pain control on POD#2 and difficulty mobilizing after surgery. Exam Vital Signs (past 8 hours): Oxygen Delivery Method Room Air Oxygen Flow Rate 0 Narrative Exam Narrative: Sitting comfortably in bedside chair eating breakfast during our interview today. Resp Effort & Inspection: normal respiratory effort and able to speak in complete sentences Cardio Rate: regular rate Other: Extremities appear well perfused. Brisk capillary refill. Back/Spine/Pelvis Other: Clean, dry, intact postsurgical dressings in place over the lumbar spine. Skin Other: No rash. Neuro General: patient alert, patient awake and patient oriented x3 Extrem Other: LEFT: 3/5 strength with EHL. 4/5 strength with TF, 5/5 with PF. RIGHT: 5/5 strength with DF, PF, EHL. Gross sensation intact throughout bilateral lower extremities. Calves soft and non-tender bilaterally. Psych Speech and Movement: speech and movement normal Objective Labs 12/15/23 05:40 PFSH Medical History Osteoporosis Fatty liver Seasonal allergies Easy bruisability Arthritis Back pain Spinal cord injury (03/2014) Neuropathy Surgical History Hx of colonoscopy (08/2023) History of lumbar spinal fusion (07/28/20) History of surgery Hx of tubal ligation History of section Hx of dilation and curettage Hx of tonsillectomy Social History household members: none Smoking Status: Never smoker alcohol intake: former Discharge Assessment & Plan Assessment and Plan Assessment: Stable status post L4-L5 fusion with L5-S1 posterior nonsegmental instrumentation removal revision laminectomy bleeding exploration of fusion. L4-L5, L5-S1 posterior segmental instrumentation with pedicle screw placement. Plan of Treatment: 1) Plan to discharge to home today with family pending PT evaluation and patients ability to safely ambulate with the walker. Also need to make sure patient can urinate on her own prior to d/c. 2) continue multimodal pain management. Patient received postop medications including Vistaril at her preop appointment. Additional medications were sent to the pharmacy today (Zofran, APAP, Colace). 3) mechanical DVT prophylaxis. 4) No deep bending, twisting or lifting more than 10lbs. 5) Keep dressing intact, clean, dry until 2 week postop appointment. No soaking the incision site in pools or tubs. No topical ointments or creams to the incision site. If gauze becomes wet or saturated okay to remove and replace with clean dry gauze or return to our office for a replacement dressing. 5) Follow up at [facility] orthopedics in 2 weeks for a postop appointment and wound check. Patient has been advised to closely monitor her trace left sided foot weakness, if this does not improve in the next few days please call our office, if it worsens at all please present to the nearest ED. All patient's questions were answered, they demonstrates understanding and are in agreement with the plan. Call our office if any questions or concerns arise. Discharge Plan Discharge Plan Patient Disposition: Home Discharge orders & Medications Prescriptions: New docusate sodium 100 mg Capsule 100 mg PO BID PRN (Reason: constipation) Qty: 30 0RF acetaminophen 325 mg Tablet 650 mg PO Q6H PRN (Reason: Fever/Mild Pain (1-3)) Qty: 90 0RF hydroxyzine HCl 25 mg Tablet 25 mg PO Q4H PRN (Reason: Muscle Spasm) Qty: 30 0RF ondansetron 4 mg Tablet,Disintegrating 4 mg sublingual Q4HR PRN (Reason: Nausea) Qty: 10 0RF oxycodone 10 mg Tablet 5 mg PO Q4-6H PRN (Reason: Pain, Severe (7-10)) Qty: 30 0RF Continued aspirin 325 mg Tablet 650 mg PO QD-BID PRN (Reason: Pain) sumatriptan succinate 50 mg Tablet 50 mg PO DAILY PRN (Reason: Migraine Headache) Prolia 60 mg/mL Syringe 60 mg SUBCUT [id number] Patient Comments: for osteoporosis acetaminophen 325 mg Tablet 650 mg PO Q6HR Qty: 40 0RF Discontinued ibuprofen 200 mg Capsule 400 mg PO Q6H PRN (Reason: Pain) Follow up/Referrals: Rosa Lechuga MD [Primary Care Provider] - Jamari Mcclain MD [Physician] - 12/28/23 4:20 pm (Follow up w/ Georges Alejandro PA-C, at [facility] in [place].) Diet/Activity/Treatments Diet: Diet as Tolerated Activity: No deep bending or twisting at the waist. No lifting more than 10 pounds. Cold/Heat Therapy: Heating pad to low back as needed for pain. Skin/Wound/Dressing Care Report to your healthcare provider any signs of infection, such as:: chills, fever, night sweats, unusual drainage and unusual redness Dressing: May shower - keep dressing as dry as possible. If dressing becomes wet or dirty, may remove and replace with clean, dry gauze. No bathing or otherwise soaking incisions. Do not apply any creams, lotions, or ointments to incisions. Visit Report/Discharge Packet Instructions: DI for Transforaminal Lumbar Interbody Fusion Stand Alone Forms: Patient Portal/API, Stroke Signs & Symptoms, Surgery Discharge Discharge Data Primary Care Provider: Rosa Lechuga
--- NOTE | 2023-12-16 08:40 | PT.IPTN ---
Current Diagnoses Spondylolisthesis, lumbar region (12/14/23) Spinal stenosis, lumbar region with neurogenic claudication (12/14/23) Radiculopathy, lumbar region (12/14/23) Arthrodesis status (12/14/23) Surgery Performed Operation Date: 12/14/23 10:15 Actual Procedures p L4-5 TLIF, L4-S1 PSF with revision hardware -Robotic fusion - Jamari Mcclain MD Physical Therapy Treatment Note M2 PT-IP Current Condition Start: 12/15/23 08:28 Freq: NEEDED Status: Active Protocol: Document 12/15/23 09:24 MB (Rec: 12/15/23 09:42 MB [id number]) Physical Therapy Current Condition Current Condition Evaluation Date 12/15/23 Treatment Diagnosis L4-5, S1 fusion M3 PT-IP Subjective Start: 12/15/23 08:28 Freq: NEEDED Status: Active Protocol: Document 12/16/23 10:30 TS (Rec: 12/16/23 10:41 TS [id number]) Subjective Physical Therapy Visit Type Type Treatment Note Visit Start Time 08:40 Visit Stop Time 10:27 Notes split treatment 8:40-8:52, 10: 15-10:27 Number of SECURITY FIELD SUPERVISOR Visits 1 Physical Therapy Visit Comments Patient Comments Pt found resting in chair, reports increased weakness in LLE and pain in hip. pt is agreeable to PT. Therapy Pain Assessment Pain When Pain Assessed During Mobility Pain Present Pain Present Pain Reported M4 PT-IP Mobility and Gait Start: 12/15/23 08:28 Freq: NEEDED Status: Active Protocol: Document 12/16/23 10:30 TS (Rec: 12/16/23 10:41 TS [id number]) PT-Transfer Assessment Sit to and From Stand Sit to and from Stand Minimal Assistance,Moderate Assistance,1 Person Assistance Equipment Transfer Assistive Device Gait Belt,Front Wheeled Walker Orthotic/Prosthetic Devices or Brace: No Comments Mobility Comments STS from chair Keri for balance pt has some difficulty transitioning hands to FWW. She ambulated ~4'CGA with FWW, pt began to report increase in pain and buckling or LLE, required chair behind her. Pt agreed to be seen later this morning with pain meds on board. STS from chair on second visit pt required ModA with use of FWW, pt continued to have buckling of LLE. Pt requested to use commode, she performed stand pivot to chair Keri with FWW management. Pt sat commode, urine in brief, did not void on commode. STS from commode ModA with FWW, she performed stand pivot to chair with continued buckling of LLE. Pt was left in chair, all needs met, RN notified. Gait Assessment Gait Gait Assistance Required: Standby Assistance Distance (Feet) 5 Able to Maintain Weight Bearing Status Yes During Gait Assistive Devices Assistive Device Gait Belt,Front Wheeled Walker Orthotic/Prosthetic Devices or Brace: No Gait Deviations General Gait Pattern Antalgic,Decreased Stride Length,Decreased Feet Clearance,Flexed Trunk,Step-to Gait,Wide Based Gait Factors Limiting Gait Function Factors Limiting Gait Function Abnormal Tonal Influences, Decreased Activity Tolerance, Difficulty Following Directions,Incoordination, Limited Range of Motion,Pain, Poor Balance,Poor Safety Awareness Comments Gait Comments See mobility comments PT-Balance Assessment Sitting Balance and Reactions Static Sitting Balance Ability Good Dynamic Sitting Balance Ability Fair Standing Balance and Reactions Static Standing Balance Ability Poor Dynamic Standing Balance Ability Poor Device Used RW M5 PT-IP Objective Assessments Start: 12/15/23 08:28 Freq: NEEDED Status: Active Protocol: Document 12/15/23 09:24 MB (Rec: 12/15/23 09:42 MB [id number]) Orientation Orientation/Cognition Level of Alertness Alert Orientation Name,Age,Birthday,Month,Date, Year,Day of Week,Place, Situation Language Function Ability No Deficits Noted Safety Awareness Decreased Safety Awareness Memory Description No Deficits Noted Gross Range of Motion Lower Extremity ROM Assessment Left Impaired Impairments Pt does not tolerate ROM or MMT and is able to extend left knee with LAQ sitting EOB to about -10 deg. She has active left ankle ROM sitting grossly 35% normal range. Strength Lower Extremity Strength Assessment Left Impaired Comments Strength Comments Pt does not tolerate MMT and once spine and spinal cord is loaded with standing, her LLE appears more weak than when sitting. Sensation Assessment Sensation Gross Sensation Left LE Impaired Sensation Description Hyperesthesia Muscle Tone Muscle Tone WNL No Comments Muscle Tone Comments Increased flexor tone in toes of left foot once standing M6 PT-IP Treatment Start: 12/15/23 08:28 Freq: NEEDED Status: Active Protocol: Document 12/16/23 10:30 TS (Rec: 12/16/23 10:41 TS [id number]) Physical Therapy Treatment Education Education Provided Precautions,Weight Bearing Status,Post-Op Packet,Safety M7 PT-IP Assessment and Plan Start: 12/15/23 08:28 Freq: NEEDED Status: Active Protocol: Document 12/16/23 10:30 TS (Rec: 12/16/23 10:41 TS [id number]) PT Summary Assessment and Plan Potential Rehabilitation Potential Good Summary Impairments Pain,ROM,Strength,Balance, Coordination,Sensation,Tone, Bed Mobility,Transfers,Gait, Activity Tolerance Progress Towards Goals Slow Progress due to Pain Assessment Summary Mariajose is making slow progress with her mobility this session. She is limited by ongoing pain in her L hip and weakness in LLE. She is requiring increased assist for STS to ModA with use of FWW. She ambulated very little this morning ~4' with FWW. PT continues to recommend home with 24/7 assist at this time. Will check on pt in the afternoon to see if she has improved. If things do not improve she made need SNF before d/c home. Goals Bed Mobility Goal Independent Transfer Goal Independent,Front Wheeled Walker,Four Wheeled Walker Gait Goal Independent,Front Wheel Walker ,Four Wheel Walker Gait Distance 75 Days to Meet Goals 5 Frequency of Treatment Frequency Of Treatment Twice a Day Treatment Plan Physical Therapy Treatment Plan Bed Mobility Training,Transfer Training,Gait Training, Therapeutic Exercise,Balance Retraining,Post Op Education, Discharge Planning,Hot or Cold Pack,Neuromuscular Re-ed, Coordination Retraining,Manual Therapy Precautions Lumbar Precautions Log Roll,No Twisting,Limit Bending,Lifting Restriction of 10 lbs,Gait Belt above Incisional Area Weight Bearing Status Weight Bearing Status Weight Bear as Tolerated Recommendations To Nursing Amount of Assist Needed 1 Person Assist Discharge Recommendations PT Discharge Recommendations Home with 24/7 Assist Available,SNF Rehab,Home vs SNF Transportation Needs at Discharge Private Vehicle
[2023-12-16] MEDS: DOCUSATE 100 MG CAPSULE PO ×2 (08:58→21:03)
[2023-12-16] MEDS: hydrOXYzine HCL 25 MG TABLET PO ×3 (11:46→21:06)
--- NOTE | 2023-12-16 12:58 | PT.IPTN ---
Current Diagnoses Spondylolisthesis, lumbar region (12/14/23) Spinal stenosis, lumbar region with neurogenic claudication (12/14/23) Radiculopathy, lumbar region (12/14/23) Arthrodesis status (12/14/23) Surgery Performed Operation Date: 12/14/23 10:15 Actual Procedures p L4-5 TLIF, L4-S1 PSF with revision hardware -Robotic fusion - Jamari Mcclain MD Physical Therapy Treatment Note M2 PT-IP Current Condition Start: 12/15/23 08:28 Freq: NEEDED Status: Active Protocol: Document 12/15/23 09:24 MB (Rec: 12/15/23 09:42 MB [id number]) Physical Therapy Current Condition Current Condition Evaluation Date 12/15/23 Treatment Diagnosis L4-5, S1 fusion M3 PT-IP Subjective Start: 12/15/23 08:28 Freq: NEEDED Status: Active Protocol: Document 12/16/23 13:37 TS (Rec: 12/16/23 13:45 TS [id number]) Subjective Physical Therapy Visit Type Type Treatment Note Visit Start Time 12:58 Visit Stop Time 13:23 Number of HUMAN RELATIONS TEACHER Visits 2 Physical Therapy Visit Comments Patient Comments Pt found resting in chair, would like to use toilet. During ambulation pt continues to report weakness in LLE and is buckling. Pt is agreeable to PT. Therapy Pain Assessment Pain When Pain Assessed During Mobility Pain Present Pain Present Pain Reported M4 PT-IP Mobility and Gait Start: 12/15/23 08:28 Freq: NEEDED Status: Active Protocol: Document 12/16/23 13:37 TS (Rec: 12/16/23 13:45 TS [id number]) PT-Transfer Assessment Sit to and From Stand Sit to and from Stand Moderate Assistance,Maximum Assistance,1 Person Assistance Equipment Transfer Assistive Device Gait Belt,Front Wheeled Walker Orthotic/Prosthetic Devices or Brace: No Comments Mobility Comments STS from chair ModA with FWW, pt c/o increasing pain in LLE and weakness. She ambulated ~ 10' with FWW to toilet Keri for FWW management. STS from toilet MaxA with FWW. She ambulated back to chair, pt's LLE given out and required chair placed behind her. Pt was left back in chair, all needs met, SW notified of pt requiring SNF at this time. Gait Assessment Gait Gait Assistance Required: Minimum Assistance Distance (Feet) 10 Able to Maintain Weight Bearing Status Yes During Gait Assistive Devices Assistive Device Gait Belt,Front Wheeled Walker Orthotic/Prosthetic Devices or Brace: No Gait Deviations General Gait Pattern Antalgic,Decreased Stride Length,Decreased Feet Clearance,Flexed Trunk,Step-to Gait,Wide Based Gait Factors Limiting Gait Function Factors Limiting Gait Function Abnormal Tonal Influences, Decreased Activity Tolerance, Difficulty Following Directions,Incoordination, Limited Range of Motion,Pain, Poor Balance,Poor Safety Awareness Comments Gait Comments See mobility comments PT-Balance Assessment Sitting Balance and Reactions Static Sitting Balance Ability Good Dynamic Sitting Balance Ability Fair Standing Balance and Reactions Static Standing Balance Ability Poor Dynamic Standing Balance Ability Poor Device Used RW M5 PT-IP Objective Assessments Start: 12/15/23 08:28 Freq: NEEDED Status: Active Protocol: Document 12/15/23 09:24 MB (Rec: 12/15/23 09:42 MB [id number]) Orientation Orientation/Cognition Level of Alertness Alert Orientation Name,Age,Birthday,Month,Date, Year,Day of Week,Place, Situation Language Function Ability No Deficits Noted Safety Awareness Decreased Safety Awareness Memory Description No Deficits Noted Gross Range of Motion Lower Extremity ROM Assessment Left Impaired Impairments Pt does not tolerate ROM or MMT and is able to extend left knee with LAQ sitting EOB to about -10 deg. She has active left ankle ROM sitting grossly 35% normal range. Strength Lower Extremity Strength Assessment Left Impaired Comments Strength Comments Pt does not tolerate MMT and once spine and spinal cord is loaded with standing, her LLE appears more weak than when sitting. Sensation Assessment Sensation Gross Sensation Left LE Impaired Sensation Description Hyperesthesia Muscle Tone Muscle Tone WNL No Comments Muscle Tone Comments Increased flexor tone in toes of left foot once standing M6 PT-IP Treatment Start: 12/15/23 08:28 Freq: NEEDED Status: Active Protocol: Document 12/16/23 13:37 TS (Rec: 12/16/23 13:45 TS [id number]) Physical Therapy Treatment Education Education Provided Precautions,Weight Bearing Status,Post-Op Packet,Safety M7 PT-IP Assessment and Plan Start: 12/15/23 08:28 Freq: NEEDED Status: Active Protocol: Document 12/16/23 13:37 TS (Rec: 12/16/23 13:45 TS [id number]) PT Summary Assessment and Plan Potential Rehabilitation Potential Fair Summary Impairments Pain,ROM,Strength,Balance, Coordination,Sensation,Tone, Bed Mobility,Transfers,Gait, Activity Tolerance Progress Towards Goals Slow Progress due to Pain Assessment Summary Mariajose continues to make slow progress with her mobility due to LLE pain and weakness. She ambulated ~20' Keri with FWW this session. LLE continues to buckle and she requires chair follow for safety. She could not get from toilet back to chair due to fatigue and weakness. PT at this time is recommending pt for SNF rehab. Pt believes her daughter will not be able to provide the level of assist she needs at this time. SW was notified. Pt would like to go to rehab in [place]. Goals Bed Mobility Goal Independent Transfer Goal Independent,Front Wheeled Walker,Four Wheeled Walker Gait Goal Independent,Front Wheel Walker ,Four Wheel Walker Gait Distance 75 Days to Meet Goals 5 Frequency of Treatment Frequency Of Treatment Twice a Day Treatment Plan Physical Therapy Treatment Plan Bed Mobility Training,Transfer Training,Gait Training, Therapeutic Exercise,Balance Retraining,Post Op Education, Discharge Planning,Hot or Cold Pack,Neuromuscular Re-ed, Coordination Retraining,Manual Therapy Other Recommendations and Next Treatment Con't to increase mobility as Focus pt able Precautions Lumbar Precautions Log Roll,No Twisting,Limit Bending,Lifting Restriction of 10 lbs,Gait Belt above Incisional Area Weight Bearing Status Weight Bearing Status Weight Bear as Tolerated Recommendations To Nursing Amount of Assist Needed 1 Person Assist Discharge Recommendations PT Discharge Recommendations SNF Rehab Transportation Needs at Discharge Private Vehicle
--- NOTE | 2023-12-16 13:23 | OT.IP.TRT ---
Current Diagnoses Spondylolisthesis, lumbar region (12/14/23) Spinal stenosis, lumbar region with neurogenic claudication (12/14/23) Radiculopathy, lumbar region (12/14/23) Arthrodesis status (12/14/23) Surgery Performed Operation Date: 12/14/23 10:15 Actual Procedures p L4-5 TLIF, L4-S1 PSF with revision hardware -Robotic fusion - Jamari Mcclain MD Occupational Therapy Treatment Note M2 OT-IP Current Condition Start: 12/15/23 09:43 Freq: Status: Active Protocol: Document 12/15/23 09:43 [facility] (Rec: 12/15/23 10:01 [facility] [id number]) Occupational Therapy Current Condition Current Condition Evaluation Date 12/15/23 Treatment Diagnosis S/P L4-5 TLIF, L4-5 PSF with hardware revision Diagnosis Onset Date 12/14/23 Post Operative Precautions Lumbar Precautions Log Roll,No Twisting,Limit Bending,Lifting Restriction of 10 lbs,Gait Belt above Incisional Area M3 OT- IP Subjective and Pain Start: 12/15/23 09:43 Freq: Status: Active Protocol: Document 12/16/23 13:00 [facility] (Rec: 12/16/23 13:33 [facility] [id number]) OT- Subjective Occupational Therapy Visit Type Type Treatment Note Visit Start Time 13:00 Visit Stop Time 13:23 Occupational Therapy Visit Comments Patient Comments Pt wanting to use the bathroom . Patient/Caregiver Goals To get better and go home. Pt feels that at this time she would rather go to skilled rehab. OT Pain Assessment Pain When Pain Assessed During Mobility Pain Present Pain Present Pain Reported M4 OT- IP ADL's Start: 12/15/23 09:43 Freq: Status: Active Protocol: Document 12/16/23 13:00 [facility] (Rec: 12/16/23 13:33 [facility] [id number]) OT VJP-Zsmk-Ijuigng General Evaluation Self-Feeding Ability Independent OT ADL-Grooming Comments OT Grooming Comments Not performed. OT ADL-Oral Care Comments Oral Care Comments Not performed. OT ADL-Dressing General Eval Lower Body Dressing Ability Maximum Assistance Comments OT Dressing Comments Pt needing assist to tobias brief over her feet and assist for socks. OT ADL-Toileting General Evaluation Toileting Ability Maximum Assistance Areas Needing Assistance Manage Clothing,Perform Perineal Hygiene Comments OT Toileting Comments Assist for clothing and all hygiene needs as pt not able to reach due to her back precautions. Pt will benefit from assist at this time. OT ADL-Bathing Comments OT Bathing Comments Pt will need assist. M5 OT- IP IADL's Start: 12/15/23 09:43 Freq: Status: Active Protocol: Document 12/15/23 09:43 [facility] (Rec: 12/15/23 10:01 [facility] [id number]) OT-Instrumental Activities of Daily Living Deficits IADL Deficits Identified Deficits Home Safety Awareness Awareness of Need for Assistance at Home Good Awareness Ability to Problem Solve Emergency Able to Problem Solve Situations Meal Preparation Meal Preparation Caregiver Provides Assist Gas Substation Operator Gas Substation Operator Caregiver Provides Assist M6 OT- IP Functional Cognition Start: 12/15/23 09:43 Freq: Status: Active Protocol: Document 12/16/23 13:00 [facility] (Rec: 12/16/23 13:33 [facility] [id number]) Cognitive Factors Limiting Selfcare Function Cognitive Ability Level of Alertness Alert Patient Orientation Name,Age,Birthday,Month,Date, Year,Day of Week,Place, Situation Ability to Follow Commands Able to Follow One Step Commands Cognitive Comments Cognitive Assessment Comments Pt able to follow her back precautions for toileting needs. M7 OT- IP Mobility and Balance Start: 12/15/23 09:43 Freq: Status: Active Protocol: Document 12/16/23 13:00 [facility] (Rec: 12/16/23 13:33 [facility] [id number]) OT-Transfer Assessment Sit to and From Stand Sit to and from Stand Moderate Assistance,Maximum Assistance Transfers Transfer Ability Moderate Assistance Technique Transfer Destination Chair,Toilet Transfer Technique Stand Step Pivot Devices Transfer Assistive Devices Gait Belt,Front Wheeled Walker Comments Mobility Comments MOD/MAX XA x1 to stand to FWW and ALONA and then needing MODA to use the FWW and heavy handed on the FWW and also noting her knees buckling as she tires. OT- Balance Assessment Sitting Balance and Reactions Static Sitting Balance Ability Good Dynamic Sitting Balance Ability Fair Standing Balance and Reactions Static Standing Balance Ability Poor Dynamic Standing Balance Ability Poor M8 OT- IP Objective Assessments Start: 12/15/23 09:43 Freq: Status: Active Protocol: Document 12/15/23 09:43 [facility] (Rec: 12/15/23 10:01 [facility] [id number]) OT Gross Range of Motion Upper Extremity Range of Motion Assessment Within Functional Limits OT Strength Upper Extremity Strength Assessment Within Functional Limits M9 OT- IP Assessment and Plan Start: 12/15/23 09:43 Freq: Status: Active Protocol: Document 12/16/23 13:00 [facility] (Rec: 12/16/23 13:33 [facility] [id number]) OT Summary Assessment and Plan Potential Rehabilitation Potential Good Analytic Complexity at Evaluation Low Summary OT Impairments Pain,Strength,Balance, Functional Mobility,Grooming, Dressing,Toileting,Bathing, Toilet Transfers,Shower Transfers,Activity Tolerance Progress Towards Goals Slow Progress due to Pain,Slow Progress due to Medical Issues,Slow Progress due to Activity Tolerance Assessment Summary Pt still having pain and limited mobility at this time. Pt is dependent for LB dressing and toileting needs today and will benefit from skilled rehab. Goals Grooming Goal Independent Dressing Goal Independent,Fishery Biologist,Sock Aid Toileting Goal Minimal Assistance,Toilet Paper Aid Bathing Goal Minimal Assistance,Hand Held Shower Sprayer,Long Handled Sponge or [place]ley Toilet Transfer Goal Independent Shower Transfer Goal Standby Assistance Days to Meet Goals 20 Frequency of Treatment Frequency Of Treatment Once a Day Treatment Plan OT Treatment Plan ADL Training,Functional Mobility,Patient/Family Education,Discharge Planning Other Treatment Recommendations and Next Practice LB dressing needs. Treatment Focus Discharge Recommendations OT Discharge Recommendations SNF Rehab Home Equipment Needs sock aid, toilet paper aid Transportation Needs at Discharge Wheelchair/Cabulance
--- NOTE | 2023-12-16 14:29 | CM.DPC ---
DCP Cont. Reviewed EMR and team rounds for status updates. Per PT as well as patient, she is now open to discharging to SNF rehab due to not progressing enough postoperatively to be safe with family providing care at this time. Faxed referral to [facility] pt[facility] preference, however they don't have a bed for another week. Called [facility], no beds until Tuesday after the weekend. Sent referral to [facility], pending response. Will update pt and team once we here back from [facility].
[2023-12-16 20:00] VITALS: BP 150/67; PULSE 99; RESP 18; TEMP 36.4; O2SAT 96
[2023-12-16] MEDS: SENNOSIDES 8.6 MG TABLET 17.2 MG PO (21:03)
[2023-12-17] MEDS: OXYCODONE IR 10 MG TABLET PO ×6 (00:03→23:27)
[2023-12-17] MEDS: hydrOXYzine HCL 25 MG TABLET PO ×3 (02:47→20:34)
[2023-12-17 08:00] VITALS: BP 135/64; PULSE 95; RESP 16; TEMP 36.3; O2SAT 96
--- NOTE | 2023-12-17 08:39 | PT.IPTN ---
Current Diagnoses Spondylolisthesis, lumbar region (12/14/23) Spinal stenosis, lumbar region with neurogenic claudication (12/14/23) Radiculopathy, lumbar region (12/14/23) Arthrodesis status (12/14/23) Surgery Performed Operation Date: 12/14/23 10:15 Actual Procedures p L4-5 TLIF, L4-S1 PSF with revision hardware -Robotic fusion - Jamari Mcclain MD Physical Therapy Treatment Note M2 PT-IP Current Condition Start: 12/15/23 08:28 Freq: NEEDED Status: Active Protocol: Document 12/15/23 09:24 MB (Rec: 12/15/23 09:42 MB [id number]) Physical Therapy Current Condition Current Condition Evaluation Date 12/15/23 Treatment Diagnosis L4-5, S1 fusion M3 PT-IP Subjective Start: 12/15/23 08:28 Freq: NEEDED Status: Active Protocol: Document 12/17/23 09:04 TS (Rec: 12/17/23 09:13 TS [id number]) Subjective Physical Therapy Visit Type Type Treatment Note Visit Start Time 08:39 Visit Stop Time 09:03 Number of RAILROAD DISPATCHER Visits 3 Physical Therapy Visit Comments Patient Comments Pt found resting in chair, would like to use to toilet. Therapy Pain Assessment Pain When Pain Assessed During Mobility Pain Present Pain Present Pain Reported M4 PT-IP Mobility and Gait Start: 12/15/23 08:28 Freq: NEEDED Status: Active Protocol: Document 12/17/23 09:04 TS (Rec: 12/17/23 09:13 TS [id number]) PT-Transfer Assessment Sit to and From Stand Sit to and from Stand Minimal Assistance,1 Person Assistance Equipment Transfer Assistive Device Gait Belt,Front Wheeled Walker Orthotic/Prosthetic Devices or Brace: No Comments Mobility Comments STS from chair Keri with FWW. She ambulated to toilet and back ~15' Keri. She continues to have some buckling in LLE and increased pain with gait. Nursing into assist pt with pericare. STS from toilet Keri and use of FWW. She ambulated back to chair. Pt performed heel slides and ankle pumps x5 . pt was left in chair, PA in room. Gait Assessment Gait Gait Assistance Required: Minimum Assistance Distance (Feet) 15 Able to Maintain Weight Bearing Status Yes During Gait Assistive Devices Assistive Device Gait Belt,Front Wheeled Walker Orthotic/Prosthetic Devices or Brace: No Gait Deviations General Gait Pattern Antalgic,Decreased Stride Length,Decreased Feet Clearance,Flexed Trunk,Step-to Gait,Wide Based Gait Factors Limiting Gait Function Factors Limiting Gait Function Abnormal Tonal Influences, Decreased Activity Tolerance, Difficulty Following Directions,Incoordination, Limited Range of Motion,Pain, Poor Balance,Poor Safety Awareness Comments Gait Comments See mobility comments PT-Balance Assessment Sitting Balance and Reactions Static Sitting Balance Ability Good Dynamic Sitting Balance Ability Fair Standing Balance and Reactions Static Standing Balance Ability Poor Dynamic Standing Balance Ability Poor Device Used RW M5 PT-IP Objective Assessments Start: 12/15/23 08:28 Freq: NEEDED Status: Active Protocol: Document 12/15/23 09:24 MB (Rec: 12/15/23 09:42 MB [id number]) Orientation Orientation/Cognition Level of Alertness Alert Orientation Name,Age,Birthday,Month,Date, Year,Day of Week,Place, Situation Language Function Ability No Deficits Noted Safety Awareness Decreased Safety Awareness Memory Description No Deficits Noted Gross Range of Motion Lower Extremity ROM Assessment Left Impaired Impairments Pt does not tolerate ROM or MMT and is able to extend left knee with LAQ sitting EOB to about -10 deg. She has active left ankle ROM sitting grossly 35% normal range. Strength Lower Extremity Strength Assessment Left Impaired Comments Strength Comments Pt does not tolerate MMT and once spine and spinal cord is loaded with standing, her LLE appears more weak than when sitting. Sensation Assessment Sensation Gross Sensation Left LE Impaired Sensation Description Hyperesthesia Muscle Tone Muscle Tone WNL No Comments Muscle Tone Comments Increased flexor tone in toes of left foot once standing M6 PT-IP Treatment Start: 12/15/23 08:28 Freq: NEEDED Status: Active Protocol: Document 12/17/23 09:04 TS (Rec: 12/17/23 09:13 TS [id number]) Physical Therapy Treatment Education Education Provided Precautions,Weight Bearing Status,Post-Op Packet,Safety M7 PT-IP Assessment and Plan Start: 12/15/23 08:28 Freq: NEEDED Status: Active Protocol: Document 12/17/23 09:04 TS (Rec: 12/17/23 09:13 TS [id number]) PT Summary Assessment and Plan Potential Rehabilitation Potential Fair Summary Impairments Pain,ROM,Strength,Balance, Coordination,Sensation,Tone, Bed Mobility,Transfers,Gait, Activity Tolerance Progress Towards Goals Slow Progress due to Pain Assessment Summary Mariajose continues to make slow progress with her mobility. She is Keri for STS with use of FWW. She continues to ambulate short distances in room with difficulty. Her LLE continues to demonstrate weakness and buckling. PT continues to recommend SNF at this time. Goals Bed Mobility Goal Independent Transfer Goal Independent,Front Wheeled Walker,Four Wheeled Walker Gait Goal Independent,Front Wheel Walker ,Four Wheel Walker Gait Distance 75 Days to Meet Goals 5 Frequency of Treatment Frequency Of Treatment Twice a Day Treatment Plan Physical Therapy Treatment Plan Bed Mobility Training,Transfer Training,Gait Training, Therapeutic Exercise,Balance Retraining,Post Op Education, Discharge Planning,Hot or Cold Pack,Neuromuscular Re-ed, Coordination Retraining,Manual Therapy Other Recommendations and Next Treatment Con't to increase mobility as Focus pt able Precautions Lumbar Precautions Log Roll,No Twisting,Limit Bending,Lifting Restriction of 10 lbs,Gait Belt above Incisional Area Weight Bearing Status Weight Bearing Status Weight Bear as Tolerated Recommendations To Nursing Amount of Assist Needed 1 Person Assist Discharge Recommendations PT Discharge Recommendations SNF Rehab Transportation Needs at Discharge Private Vehicle
--- NOTE | 2023-12-17 09:27 | P.DS_ITS ---
History of Present Illness History of Present Illness Date Patient Seen: 12/17/23 Time Patient Seen: 09:30 Chief complaint: TLIF Narrative: Chief complaint: TLIF Narrative: Mariajose is a pleasant 73 year old female who is POD#2 s/p L4-L5 fusion with L5-S1 posterior nonsegmental instrumentation removal revision laminectomy bleeding exploration of fusion. L4-L5, L5-S1 posterior segmental instrumentation with pedicle screw placement by Dr. Mcclain. Overall patient reports her pain is improved from yesterday although she is still having moderate left sided pain, mostly in her hip/buttock. She has complaints of weakness in her left leg with her knee buckling at times. Patient states she is able to walk to the [facility] but is fatigued upon returning to her bed. Does live in a [id number] apartment next to her daughter so she will have family/support at home when discharged from the SNF. There are no steps into her home. Has post-op pain medications at home already. Has walker at home for postop use as well. Patient still has some left sided weakness, she states that this started prior to surgery but has not improved s/p surgery 3 days ago. Denies any right sided symptoms. Denies fever, chills, chest pain, SOB, nausea, and vomiting. Discharge Providers Provider Date of admission: 12/14/23 08:40 Discharge Date: 12/17/23 Primary care physician: Rosa Lechuga MD Consults: 12/14/23 15:53 Consult to Occupational Therapy Evaluate & Treat Comment: Physician Instructions: Evaluate and treat Consult to Physical Therapy Evaluate & Treat Comment: Physician Instructions: Evaluate and Treat Discharge provider: Tacho Polanco PA-C Summary Hospital Course Discharge Diagnosis: stable s/p L4-L5 fusion with L5-S1 posterior nonsegmental instrumentation removal revision laminectomy bleeding exploration of fusion. L4-L5, L5-S1 posterior segmental instrumentation with pedicle screw placement. Hospital Course: Hospital course complicated by poor pain control on POD#3 and difficulty mobilizing after surgery. Status at Discharge Cognitive/behavioral status at discharge: oriented Functional status at discharge: uses cane/walker Overall status at discharge: patient is not back to baseline Time Spent with Patient Time spent: Less than 30 minutes Exam Vital Signs (past 8 hours): Oxygen Delivery Method Room Air Oxygen Flow Rate 0 Narrative Exam Narrative: Sitting comfortably in bedside chair, she just finished working with PT. LEFT: 4/5 strength with EHL. 4/5 strength with TF, 5/5 with PF. RIGHT: 5/5 strength with DF, PF, EHL. Gross sensation intact throughout bilateral lower extremities. Posterior thigh and calves soft and non-tender bilaterally. No warmth noted Const General: cooperative and comfortable Resp Effort & Inspection: normal respiratory effort and able to speak in complete sentences Objective Labs 12/15/23 05:40 [facility] Medical History Osteoporosis Fatty liver Seasonal allergies Easy bruisability Arthritis Back pain Spinal cord injury (03/2014) Neuropathy Surgical History Hx of colonoscopy (08/2023) History of lumbar spinal fusion (07/28/20) History of surgery Hx of tubal ligation History of section Hx of dilation and curettage Hx of tonsillectomy Social History household members: none Smoking Status: Never smoker alcohol intake: former Discharge Assessment & Plan Assessment and Plan Assessment: Stable status post L4-L5 fusion with L5-S1 posterior nonsegmental instrumentation removal revision laminectomy bleeding exploration of fusion. L4- L5, L5-S1 posterior segmental instrumentation with pedicle screw placement. Plan of Treatment: 1) Plan to discharge to SNF due to left leg weakness and failure to improve with inpatient PT. 2) continue multimodal pain management. Patient received postop medications including Vistaril at her preop appointment. Additional medications were sent to the pharmacy. (Zofran, APAP, Colace). 3) mechanical DVT prophylaxis. 4) No deep bending, twisting or lifting more than 10lbs. 5) Keep dressing intact, clean, dry until 2 week postop appointment. No soaking the incision site in pools or tubs. No topical ointments or creams to the incision site. If gauze becomes wet or saturated okay to remove and replace with clean dry gauze or return to our office for a replacement dressing. 5) Follow up at [facility] in 2 weeks for a postop appointment and wound check. Patient has been advised to closely monitor her trace left sided foot weakness, if this does not improve in the next few days please call our office, if it worsens at all please present to the nearest ED. All patient's questions were answered, they demonstrates understanding and are in agreement with the plan. Call our office if any questions or concerns arise. Discharge Plan Discharge Plan Patient Disposition: SNF Transfer to: [facility] Discharge orders & Medications Prescriptions: New docusate sodium 100 mg Capsule 100 mg PO BID PRN (Reason: constipation) Qty: 30 0RF acetaminophen 325 mg Tablet 650 mg PO Q6H PRN (Reason: Fever/Mild Pain (1-3)) Qty: 90 0RF hydroxyzine HCl 25 mg Tablet 25 mg PO Q4H PRN (Reason: Muscle Spasm) Qty: 30 0RF oxycodone 5 mg Tablet 5 mg PO Q4HR PRN (Reason: Pain, Moderate (4-10)) Qty: 40 0RF Continued sumatriptan succinate 50 mg Tablet 50 mg PO DAILY PRN (Reason: Migraine Headache) Prolia 60 mg/mL Syringe 60 mg SUBCUT [id number] Patient Comments: for osteoporosis acetaminophen 325 mg Tablet 650 mg PO Q6HR Qty: 40 0RF Discontinued aspirin 325 mg Tablet 650 mg PO QD-BID PRN (Reason: Pain) ibuprofen 200 mg Capsule 400 mg PO Q6H PRN (Reason: Pain) Follow up/Referrals: Rosa Lechuga MD [Primary Care Provider] - Jamari Mcclain MD [Physician] - 12/28/23 4:20 pm (Follow up w/ Georges Alejandro PA-C, at [facility] [facility] office in [place].) Diet/Activity/Treatments Diet: Diet as Tolerated Activity: No deep bending or twisting at the waist. No lifting more than 10 pounds. Cold/Heat Therapy: Heating pad to low back as needed for pain. Skin/Wound/Dressing Care Report to your healthcare provider any signs of infection, such as:: chills, fever, night sweats, unusual drainage and unusual redness Dressing: May shower - keep dressing as dry as possible. If dressing becomes wet or dirty, may remove and replace with clean, dry gauze. No bathing or otherwise soaking incisions. Do not apply any creams, lotions, or ointments to incisions. [facility] Reason for rehabilitation: Post-operative therapy Rehab type: Physical therapy Visit Report/Discharge Packet Instructions: DI for Prescription Opioid Use, DI for Transforaminal Lumbar Interbody Fusion Stand Alone Forms: Patient Portal/API, Surgery Discharge Discharge Data Primary Care Provider: Rosa Lechuga
[2023-12-17] MEDS: MAGNESIUM HYDROXIDE 30 ML UDC PO (09:40)
[2023-12-17] MEDS: DOCUSATE 100 MG CAPSULE PO ×2 (09:40→20:34)
--- NOTE | 2023-12-17 11:03 | CM.DPC ---
DCP Cont. Reviewed EMR and team rounds for status updates. Spoke to Felisha Arias, they can't accept today, but they can tomorrow. PASSAR completed, need to confirm transport time. Met with pt and updated her on the plan.
--- NOTE | 2023-12-17 13:54 | PT-IP ANOTE ---
Pt refused to work with PT this afternoon. She just got back to the chair and would like to rest.
[2023-12-17] MEDS: ACETAMINOPHEN 325 MG TABLET 650 MG PO (15:12)
[2023-12-17] MEDS: SENNOSIDES 8.6 MG TABLET 17.2 MG PO (20:34)
[2023-12-17] MEDS: polyethylene glycoL 3350 17 GM POWD.PACK PO (20:34)
[2023-12-17 20:38] VITALS: BP 133/57; PULSE 90; RESP 16; TEMP 36.1; O2SAT 98
[2023-12-18] MEDS: hydrOXYzine HCL 25 MG TABLET PO ×2 (01:28→08:38)
[2023-12-18] MEDS: OXYCODONE IR 10 MG TABLET PO ×2 (03:31→06:30)
[2023-12-18 08:00] VITALS: BP 129/72; PULSE 93; RESP 16; TEMP 36.5; O2SAT 96
[2023-12-18] MEDS: DOCUSATE 100 MG CAPSULE PO (08:38)
[2023-12-18] MEDS: polyethylene glycoL 3350 17 GM POWD.PACK PO (08:38)
--- NOTE | 2023-12-18 09:39 | CM.DPC ---
DCP Discharge SNF Per Ortho, pt remains medically stable to discharge today to SNF and discharge summary, meds, orders were completed yesterday but [facility] did not have the staff to accept. Ortho kindly placed updated discharge order for today. CARLOS ENRIQUE called [facility] admissions and left requesting update on time of transport and emailed pt's discharge summary, signed med list, scripts, MD DARLENE orders secure email to Anabela and Veena with request for transport time. CARLOS ENRIQUE updated RN and pt bedside and pt confirms she is still agreeable with d/c to [facility] today. Per RN, transport just showed up to transport pt to [facility]. CARLOS ENRIQUE then received call from [facility] admissions stating they let DCP know yesterday that only transport time available was 0930 and unfortunately previous DCP did not update their EMR note or handoff. [facility] confirms they anticipated admitting pt this morning. CARLOS ENRIQUE updated RN and FLOUR BROKER and cold rolling supervisor who kindly are scrambling to get pt SNF packet and pt ready for transport. Plan: Patient to discharge to [facility] now via cabulance at 0945 before safe return home. PRUDENCE Russell
--- NOTE | 2023-12-18 10:22 | PC.NURSE ---
Addendum entered by Gayathri Khan R.N. 12/18/23 11:50: Finally able to get through to [facility] at 1145, report given to SILAS Burch. Original Note: Pt discharged to [facility] at 1000, escorted off floor in wheelchair accompanied by transport team and hospital staff. IV removed, discharge packet, including scripts and signed med list, sent with patient. All belongings left with patient. Attempted to call report at 1015, no one answered the phone. Will try again soon.
== END 2023-12-18 11:51 | DRG 454 ==
PROVIDERS: Admitting Provider Orthopaedic Surgery Orthopaedic Surgery of the Spine; PCP Internal Medicine; Referring Provider Internal Medicine; Visit Provider Orthopaedic Surgery Orthopaedic Surgery of the Spine
PROC: 0SG00AJ Fusion of Lumbar Vertebral Joint with Interbody Fusion Device, Posterior Approach, Anterior Column, Open Approach (ICD-10-PCS; principal; 2023-12-14 10:15)
DX: M48.062 Spinal stenosis, lumbar region with neurogenic claudication (principal); M96.0 Pseudarthrosis after fusion or arthrodesis; Z68.42 Body mass index [BMI] 45.0-49.9, adult; E66.01 Morbid (severe) obesity due to excess calories; M96.1 Postlaminectomy syndrome, not elsewhere classified; G89.18 Other acute postprocedural pain; M81.0 Age-related osteoporosis without current pathological fracture; Z98.1 Arthrodesis status
CPT/HCPCS: 36415; 72100; 76000; 85014; 85018; 97116; 97161; 97165; 97530; 97535; A9270; C1713; C9290; J0171; J0330; J0690; J1100; J1170; J2405; J2704; J3010; J3410